=== PATIENT | female | born 1975 | race Caucasian/White ===

== ENCOUNTER → 2016-08-13 | Outpatient (CLI) | payer BC | LOC: RAD 12:33 | PROVIDERS: ATTEND Orthopaedic Surgery | DX: M54.12 Radiculopathy, cervical region (principal) | CPT/HCPCS: 72141 ==

== ENCOUNTER 2017-01-13 13:26 | Emergency (ER) | payer BC ==
--- NOTE | 2017-01-13 14:08 | ER Document Report ---
ED Cardiac - General Chief Complaint: Palpitations Stated Complaint: POSSIBLE SYNCOPE Time Seen by Provider: 01/13/17 14:03 Mode of Arrival: Ambulatory Information source: Patient Notes: Patient is a 41-year-old female with a history of SVT with an ablation 5 years ago who presents to the ER today for sweating, chills, nausea, diarrhea 5 days. Patient states that today she started having palpitations. She states that she is not really eating or drinking because of the nausea but that she has not vomited. She denies any cough, dysuria, hematuria, runny nose or sinus symptoms. She has not taken her temperature. She also has PTSD, anxiety and "severe" depression, asthma. She denies any chest pain or shortness of breath, having to use her inhaler recently. TRAVEL OUTSIDE OF THE [place] IN LAST 30 DAYS: No - Related Data Allergies/Adverse Reactions: hydromorphone HCl [From Dilaudid] Allergy (Severe, Verified 10/15/15 19:57) Severe chest pain promethazine HCl [From Phenergan] Allergy (Severe, Verified 10/15/15 19:57) dystonic reaction, Body aches, Hyperactivity Sulfa (Sulfonamide Antibiotics) Allergy (Severe, Verified 10/15/15 19:57) Hives acetaminophen [From Vicodin] Allergy (Verified 10/15/15 19:57) Hives hydrocodone bitartrate [From Vicodin] Allergy (Verified 10/15/15 19:57) Hives ciprofloxacin HCl [From Cipro] Adverse Reaction (Severe, Verified 10/15/15 19:57 ) VOMITING morphine [Morphine] Adverse Reaction (Severe, Verified 10/15/15 19:57) Chest pain oxycodone HCl [From Percocet] Adverse Reaction (Severe, Verified 10/15/15 19:57) rapid HR codeine [Codeine] Adverse Reaction (Verified 10/15/15 19:57) Chest pain Past Medical History - General Information source: Patient - Social History Smoking Status: Unknown if Ever Smoked Family History: Reviewed & Not Pertinent - Past Medical History Cardiac Medical History: Denies: Hx Coronary Artery Disease, Hx Heart Attack, Hx Hypertension Pulmonary Medical History: Reports: Hx Asthma, Hx Pneumonia - Age 7 hospitalized x2 wks Denies: Hx Bronchitis, Hx COPD Neurological Medical History: Reports: Hx Migraine. Denies: Hx Cerebrovascular Accident, Hx Seizures GI Medical History: Reports: Hx Gastroesophageal Reflux Disease Musculoskeltal Medical History: Reports Hx Arthritis - Back, neck, shoulders, Reports Hx Fibromyalgia Psychiatric Medical History: Reports: Hx Anxiety, Hx Attention Deficit Hyperactivity Disorder, Hx Depression, Hx Post Traumatic Stress Disorder Past Surgical History: Reports: Hx Cardiac Surgery - ablation for SVT, Hx Cholecystectomy, Hx Orthopedic Surgery - right shoulder, Hx Tubal Ligation - Immunizations Hx Diphtheria, Pertussis, Tetanus Vaccination: Yes Hx Pneumococcal Vaccination: 06/12/14 Review of Systems - Review of Systems Constitutional: See HPI EENT: No symptoms reported Cardiovascular: See HPI Respiratory: See HPI Gastrointestinal: See HPI Genitourinary: No symptoms reported Female Genitourinary: No symptoms reported Musculoskeletal: No symptoms reported Skin: No symptoms reported Hematologic/Lymphatic: No symptoms reported Neurological/Psychological: No symptoms reported Physical Exam - Vital signs Vitals: Temp 98.4 F 01/13/17 13:30 - Notes Notes: PHYSICAL EXAMINATION: GENERAL: Anxious, in no acute distress. HEAD: Atraumatic, normocephalic. EYES: Pupils equal round and reactive to light, extraocular movements intact, sclera anicteric, conjunctiva are normal. ENT: ear canals without erythema or foreign body, TMs pearly arora with good bony landmarks, nares patent, oropharynx clear without exudates. Moist mucous membranes. NECK: Normal range of motion, supple without lymphadenopathy LUNGS: CTAB and equal. No wheezes rales or rhonchi. HEART: Regular rate and rhythm without murmurs ABDOMEN: Soft, no tenderness. No guarding, no rebound BACK: no vertebral tenderness, normal ROM GI/: no CVA tenderness EXTREMITIES: Normal range of motion, no pitting edema. No cyanosis. NEUROLOGICAL: Cranial nerves grossly intact. Normal sensory/motor exams. PSYCH: Anxious SKIN: Warm, Dry, normal turgor, no rashes or lesions noted Course - Re-evaluation Re-evalutation: 01/13/17 17:35 Pt was very agitated in the room as soon as I walked out from evaluating her, I was called back in because she was "ripping" everything off of her including the IV, bp cuff, etc. She was not like this when I evaluated her minutes prior. I did order her normal dose of ativan orally which calmed her down and her palpitations disappeared, 2 liters of IV fluids brought her bp up to normal ( lowest here on one cycle was 94/57) and it remained normal, pt was initially tachycardic up to 128 when she had her panic attack here, but now has remained between 82-94bpm in sinus rhythm. EKG revealed normal sinus rhythm with a rate of 82bpm. - Vital Signs Vital signs: Temp Pulse Resp BP Pulse Ox 98.4 F 01/13/17 13:30 - Laboratory Result Diagrams: 01/13/17 15:10 01/13/17 15:10 Laboratory results interpreted by me: 01/13/17 01/13/17 01/13/17 15:10 15:10 15:30 WBC 11.6 H BUN 5 L Glucose 70 L Urine Ketones TRACE H Discharge - Discharge Clinical Impression: Anxiety, Palpitations, Viral syndrome Diarrhea Qualifiers: Diarrhea type: presumed infectious Qualified Code(s): A09 - Infectious gastroenteritis and colitis, unspecified Condition: Stable Disposition: HOME, SELF-CARE Instructions: Viral Syndrome ([facility]), Palpitations (Irregular or Rapid Heartrate ) ([facility]) Additional Instructions: Return immediately for any new or worsening symptoms. Follow up with primary care provider/intake specialist, call tomorrow to make followup appointment. Prescriptions: Loperamide HCl [Imodium 2 mg Capsule] 2 mg PO Q4HP PRN #21 cap PRN Reason: Forms: Return to Work
[2017-01-13] MEDS ORDERED: NORMAL SALINE 1000 ML 1,000 ML IV ONE ×2 (14:20→16:24)
[2017-01-13] MEDS ORDERED: LORAZEPAM 1 MG TABLET PO ONE (14:27)
--- NOTE | 2017-01-13 15:09 | RADIOLOGY REPORT (SQ) ---
EXAM DESCRIPTION: CHEST SINGLE VIEW COMPLETED DATE/TIME: 01/13/2017 3:00 pm REASON FOR STUDY: cp, nausea, diaphoretic COMPARISON: 08/11/2014 EXAM PARAMETERS: NUMBER OF VIEWS: One view. TECHNIQUE: Single frontal radiographic view of the chest acquired. RADIATION DOSE: NA LIMITATIONS: None. FINDINGS: LUNGS AND PLEURA: No opacities, masses or pneumothorax. No pleural effusion. MEDIASTINUM AND HILAR STRUCTURES: No masses. Contour normal. HEART AND VASCULAR STRUCTURES: Heart normal in size. Normal vasculature. BONES: No acute findings. HARDWARE: None in the chest. OTHER: No other significant finding. IMPRESSION: NO ACUTE RADIOGRAPHIC FINDING IN THE CHEST. TECHNICAL DOCUMENTATION: JOB ID: [id number]
[2017-01-13 15:20] LABS: ABSOLUTE BASOPHILS # (AUTO) 0.1 10^3/uL (0.0-0.2); ABSOLUTE EOSINOPHILS # (AUTO) 0.2 10^3/uL (0.0-0.6); ABSOLUTE LYMPHOCYTES (AUTO) 2.8 10^3/uL (0.5-4.7); ABSOLUTE MONOCYTES (AUTO) 0.8 10^3/uL (0.1-1.4); ABSOLUTE NEUT (AUTO) 7.8 10^3/uL (1.7-8.2); BASOPHILS % (AUTO) 0.6 % (0-2); EOSINOPHILS % (AUTO) 1.6 % (0-6); HEMATOCRIT 39.1 % (36.0-47.0); HEMOGLOBIN 13.1 g/dL (12.0-15.5); HGB HCT DIFFERENCE 0.2; LYMPHOCYTES % (AUTO) 23.8 % (13-45); MEAN CORPUSCULAR HEMOGLOBIN 30.1 pg (27.0-33.4); MEAN CORPUSCULAR HGB CONC 33.5 g/dL (32.0-36.0); MEAN CORPUSCULAR VOLUME 90 fl (80-97); MONOCYTES % (AUTO) 6.6 % (3-13); RED BLOOD COUNT 4.35 10^6/uL (3.72-5.28); RED CELL DISTRIBUTION WIDTH 13.3 % (11.5-14.0); SEGMENTED NEUTROPHILS % (AUTO) 67.4 % (42-78); WHITE BLOOD COUNT 11.6 10^3/uL (4.0-10.5)
[2017-01-13 15:34] LABS: ALANINE AMINOTRANSFERASE 22 U/L (9-52); ALKALINE PHOSPHATASE 92 U/L (38-126); ANION GAP 13 (5-19); ASPARTATE AMINO TRANSFERASE 14 U/L (14-36); BILIRUBIN,DIRECT 0.3 mg/dL (0.0-0.4); BILIRUBIN,TOTAL 0.5 mg/dL (0.2-1.3); BLOOD UREA NITROGEN 5 mg/dL (7-20); CALCIUM 9.3 mg/dL (8.4-10.2); CARBON DIOXIDE 25 mmol/L (22-30); CHLORIDE 106 mmol/L (98-107); CREATINE KINASE 56 U/L (30-135); CREATININE RESULT 0.68 mg/dL (0.52-1.25); GLUCOSE 70 mg/dL (75-110); LIPASE 79.5 U/L (23-300); POTASSIUM 3.7 mmol/L (3.6-5.0); SODIUM 143.5 mmol/L (137-145); TOTAL PROTEIN 7.1 g/dL (6.3-8.2)
[2017-01-13 15:46] LABS: CREATINE KINASE MB 0.25 ng/mL (<4.55)
[2017-01-13 15:47] LABS: TROPONIN I < 0.012 ng/mL
[2017-01-13 15:53] LABS: APPEARANCE,URINE CLEAR; BILIRUBIN,URINE NEGATIVE (NEGATIVE); GLUCOSE, URINE NEGATIVE (NEGATIVE); KETONES,URINE TRACE mg/dL (NEGATIVE); LEUKOCYTE ESTERASE,URINE NEGATIVE (NEGATIVE); NITRITE,URINE NEGATIVE (NEGATIVE); PROTEIN,URINE NEGATIVE (NEGATIVE); URINE SPECIFIC GRAVITY 1.005; UROBILINOGEN,URINE NEGATIVE mg/dL (<2.0)
[2017-01-13 16:07] LABS: URINE BARBITURATES SCREEN NEGATIVE; URINE METHADONE SCREEN NEGATIVE; URINE OPIATES LOW NEGATIVE; URINE PHENCYCLIDINE SCREEN NEGATIVE
[2017-01-13] MEDS ORDERED: LOPERAMIDE HCL 2 MG CAPSULE PO ONE (17:44)
[2017-01-13 17:50] VITALS: BP 101/67
--- NOTE | 2017-01-15 03:55 | EKG REPORT ---
SEVERITY:- ABNORMAL ECG - SINUS RHYTHM FIRST DEGREE AV BLOCK : Confirmed by: Shameka Moses MD 15-Jan-2017 03:55:08
== END 2017-01-13 18:01 | disposition home or self-care (01) ==
LOC: ER 13:26
DX: F41.9 Anxiety disorder, unspecified (principal); R00.2 Palpitations; B34.9 Viral infection, unspecified; A09 Infectious gastroenteritis and colitis, unspecified; R55 Syncope and collapse; Z88.6 Allergy status to analgesic agent; Z88.2 Allergy status to sulfonamides; Z88.3 Allergy status to other anti-infective agents; Z90.49 Acquired absence of other specified parts of digestive tract; Z98.51 Tubal ligation status
CPT/HCPCS: 93005; 99285; 96361; 96374; 36415; 87045; 87205; 82553; 82550; 83690; 85025; 80053; 81001; 84484; 80307; 87493 ×2; 71010; 93010; J7030

== ENCOUNTER 2017-03-02 19:33 | Emergency (ER) | payer BC ==
[2017-03-02] MEDS ORDERED: NORMAL SALINE 1000 ML 1,000 ML IV PRN (20:56)
[2017-03-02] MEDS ORDERED: MORPHINE SULFATE 10 MG/ML INJ IV ONE (20:57)
[2017-03-02] MEDS ORDERED: ONDANSETRON HCL INJ/PF 4 MG/2 ML SDV IV ONE (20:57)
--- NOTE | 2017-03-02 21:00 | ER Document Report ---
ED Medical Screen (RME) - General Chief Complaint: Abdominal Pain Stated Complaint: ABDOMINAL PAIN Time Seen by Provider: 03/02/17 20:56 Notes: Patient reports several days of diffuse abdominal pain with vomiting. No change in stools. She states she has had a previous cholecystectomy and a tubal ligation as well as a bladder sling. No problems with urination no vaginal symptoms. TRAVEL OUTSIDE OF THE [place] IN LAST 30 DAYS: No - Related Data Allergies/Adverse Reactions: hydromorphone HCl [From Dilaudid] Allergy (Severe, Verified 10/15/15 19:57) Severe chest pain promethazine HCl [From Phenergan] Allergy (Severe, Verified 10/15/15 19:57) dystonic reaction, Body aches, Hyperactivity Sulfa (Sulfonamide Antibiotics) Allergy (Severe, Verified 10/15/15 19:57) Hives acetaminophen [From Vicodin] Allergy (Verified 10/15/15 19:57) Hives hydrocodone bitartrate [From Vicodin] Allergy (Verified 10/15/15 19:57) Hives ciprofloxacin HCl [From Cipro] Adverse Reaction (Severe, Verified 10/15/15 19:57 ) VOMITING morphine [Morphine] Adverse Reaction (Severe, Verified 10/15/15 19:57) Chest pain oxycodone HCl [From Percocet] Adverse Reaction (Severe, Verified 10/15/15 19:57) rapid HR codeine [Codeine] Adverse Reaction (Verified 10/15/15 19:57) Chest pain Past Medical History - Social History Chew tobacco use (# tins/day): No Frequency of alcohol use: None Drug Abuse: None - Past Medical History Cardiac Medical History: Denies: Hx Coronary Artery Disease, Hx Heart Attack, Hx Hypertension Pulmonary Medical History: Reports: Hx Asthma, Hx Pneumonia - Age 7 hospitalized x2 wks Denies: Hx Bronchitis, Hx COPD Neurological Medical History: Reports: Hx Migraine. Denies: Hx Cerebrovascular Accident, Hx Seizures Renal/ Medical History: Denies: Hx Peritoneal Dialysis GI Medical History: Reports: Hx Gastroesophageal Reflux Disease Musculoskeltal Medical History: Reports Hx Arthritis - Back, neck, shoulders, Reports Hx Fibromyalgia Psychiatric Medical History: Reports: Hx Anxiety, Hx Attention Deficit Hyperactivity Disorder, Hx Depression, Hx Post Traumatic Stress Disorder Past Surgical History: Reports: Hx Cardiac Surgery - ablation for SVT, Hx Cholecystectomy, Hx Genitourinary Surgery - monarch bladder sling, Hx Orthopedic Surgery - right shoulder, Hx Tubal Ligation - Immunizations Hx Diphtheria, Pertussis, Tetanus Vaccination: Yes Physical Exam - Vital signs Vitals: Temp Pulse Resp BP Pulse Ox 98.5 F 103 H 16 117/76 98 03/02/17 20:00 03/02/17 20:00 03/02/17 20:00 03/02/17 20:00 03/02/17 20:00 Course - Vital Signs Vital signs: Temp Pulse Resp BP Pulse Ox 98.5 F 103 H 16 117/76 98 03/02/17 20:00 03/02/17 20:00 03/02/17 20:00 03/02/17 20:00 03/02/17 20:00
[2017-03-02 22:19] LABS: ABSOLUTE BASOPHILS # (AUTO) 0.1 10^3/uL (0.0-0.2); ABSOLUTE EOSINOPHILS # (AUTO) 0.4 10^3/uL (0.0-0.6); ABSOLUTE LYMPHOCYTES (AUTO) 3.4 10^3/uL (0.5-4.7); ABSOLUTE MONOCYTES (AUTO) 0.9 10^3/uL (0.1-1.4); ABSOLUTE NEUT (AUTO) 8.1 10^3/uL (1.7-8.2); BASOPHILS % (AUTO) 0.6 % (0-2); EOSINOPHILS % (AUTO) 3.2 % (0-6); HEMOGLOBIN 13.9 g/dL (12.0-15.5); HGB HCT DIFFERENCE -0.3; LYMPHOCYTES % (AUTO) 26.3 % (13-45); MEAN CORPUSCULAR HEMOGLOBIN 30.7 pg (27.0-33.4); MEAN CORPUSCULAR VOLUME 93 fl (80-97); MONOCYTES % (AUTO) 6.9 % (3-13); RED BLOOD COUNT 4.53 10^6/uL (3.72-5.28); RED CELL DISTRIBUTION WIDTH 14.2 % (11.5-14.0); WHITE BLOOD COUNT 12.8 10^3/uL (4.0-10.5)
[2017-03-02 22:28] LABS: ALANINE AMINOTRANSFERASE 29 U/L (9-52); ALBUMIN 4.8 g/dL (3.5-5.0); ALKALINE PHOSPHATASE 100 U/L (38-126); ANION GAP 14 (5-19); ASPARTATE AMINO TRANSFERASE 19 U/L (14-36); BILIRUBIN,DIRECT 0.4 mg/dL (0.0-0.4); BILIRUBIN,TOTAL 0.8 mg/dL (0.2-1.3); BLOOD UREA NITROGEN 9 mg/dL (7-20); CALCIUM 9.9 mg/dL (8.4-10.2); CARBON DIOXIDE 23 mmol/L (22-30); CHLORIDE 105 mmol/L (98-107); CREATININE RESULT 0.74 mg/dL (0.52-1.25); GLUCOSE 95 mg/dL (75-110); LIPASE 66.8 U/L (23-300); POTASSIUM 4.4 mmol/L (3.6-5.0); SODIUM 141.9 mmol/L (137-145); TOTAL PROTEIN 8.2 g/dL (6.3-8.2)
[2017-03-02] MEDS ORDERED: DICYCLOMINE HCL INJ 20 MG/2 ML AMPULE IM ONE (23:15)
--- NOTE | 2017-03-02 23:17 | ER Document Report ---
ED General - General Chief Complaint: Abdominal Pain Stated Complaint: ABDOMINAL PAIN Time Seen by Provider: 03/02/17 20:56 Notes: Patient is a 41-year-old female presents with complaint of abdominal pain. She says is ongoing for several days. She says is generalized across the abdomen. No vomiting. No diarrhea. Last bowel movement was this morning. She says was normal. She says only thing atypical about a bowel movement that she typically has multiple bowel movements in the morning and she only had one. No blood in her stool. No fevers. She has a history of cholecystectomy, tubal ligation, and bladder sling surgery. No dysuria. No abnormal vaginal bleeding or discharge. No other complaints at this time. Patient's chief complaint on her chart is redness abdominal pain or shortness of breath. Patient says that she is actually short of breath but she feels like her breath is harder to get in especially when she is having pain. No history of DVT or PE. No extremity swelling. TRAVEL OUTSIDE OF THE [place] IN LAST 30 DAYS: No - Related Data Allergies/Adverse Reactions: hydromorphone HCl [From Dilaudid] Allergy (Severe, Verified 10/15/15 19:57) Severe chest pain promethazine HCl [From Phenergan] Allergy (Severe, Verified 10/15/15 19:57) dystonic reaction, Body aches, Hyperactivity Sulfa (Sulfonamide Antibiotics) Allergy (Severe, Verified 10/15/15 19:57) Hives acetaminophen [From Vicodin] Allergy (Verified 10/15/15 19:57) Hives hydrocodone bitartrate [From Vicodin] Allergy (Verified 10/15/15 19:57) Hives ciprofloxacin HCl [From Cipro] Adverse Reaction (Severe, Verified 10/15/15 19:57 ) VOMITING morphine [Morphine] Adverse Reaction (Severe, Verified 10/15/15 19:57) Chest pain oxycodone HCl [From Percocet] Adverse Reaction (Severe, Verified 10/15/15 19:57) rapid HR codeine [Codeine] Adverse Reaction (Verified 10/15/15 19:57) Chest pain Past Medical History - Social History Smoking Status: Former Smoker Chew tobacco use (# tins/day): No Frequency of alcohol use: None Drug Abuse: None Family History: Reviewed & Not Pertinent Patient has suicidal ideation: No Patient has homicidal ideation: No - Past Medical History Cardiac Medical History: Denies: Hx Coronary Artery Disease, Hx Heart Attack, Hx Hypertension Pulmonary Medical History: Reports: Hx Asthma, Hx Pneumonia - Age 7 hospitalized x2 wks Denies: Hx Bronchitis, Hx COPD Neurological Medical History: Reports: Hx Migraine. Denies: Hx Cerebrovascular Accident, Hx Seizures Renal/ Medical History: Denies: Hx Peritoneal Dialysis GI Medical History: Reports: Hx Gastroesophageal Reflux Disease Musculoskeltal Medical History: Reports Hx Arthritis - Back, neck, shoulders, Reports Hx Fibromyalgia Psychiatric Medical History: Reports: Hx Anxiety, Hx Attention Deficit Hyperactivity Disorder, Hx Depression, Hx Post Traumatic Stress Disorder Past Surgical History: Reports: Hx Cardiac Surgery - ablation for SVT, Hx Cholecystectomy, Hx Genitourinary Surgery - monarch bladder sling, Hx Orthopedic Surgery - right shoulder, Hx Tubal Ligation - Immunizations Hx Diphtheria, Pertussis, Tetanus Vaccination: Yes Hx Pneumococcal Vaccination: 06/12/14 Physical Exam - Vital signs Vitals: Temp Pulse Resp BP Pulse Ox 98.5 F 103 H 16 117/76 98 03/02/17 20:00 03/02/17 20:00 03/02/17 20:00 03/02/17 20:00 03/02/17 20:00 Course - Re-evaluation Re-evalutation: 03/03/17 01:50 Patient did mention to me that for the difficulty breathing had started and she was having some pain into her right thigh. The pain in right thigh is now gone but she has since developed some difficulty breathing. I therefore did obtain a d-dimer. D-dimer is positive. We will perform a CT Angio of the chest. 03/03/17 05:18 CTA of the chest is negative. Patient's pain on repeat evaluations is mostly epigastric. She has no right lower quadrant abdominal tenderness. I do not have concern for appendicitis being that she has no right lower quadrant abdominal tenderness. She looks well. She is on Mobic. This could be leading to some gastric irritation. She is already on Protonix. She says usually takes the Mobic on an empty stomach. I encouraged her to take the Mobic with food. I will place her on Carafate as well. Encouraged her follow-up closely with her primary care doctor. I encouraged her return to the ER if she has worsening pain, fevers, vomiting, or feels unwell. Patient agrees with plan and will be discharged home. Dictation of this chart was performed using voice recognition software; therefore, there may be some unintended grammatical errors. - Vital Signs Vital signs: Temp Pulse Resp BP Pulse Ox 98.5 F 103 H 16 117/76 98 03/02/17 20:00 03/02/17 20:00 03/02/17 20:00 03/02/17 20:00 03/02/17 20:00 - Laboratory Result Diagrams: 03/02/17 21:50 03/02/17 21:50 Laboratory results interpreted by me: 03/02/17 03/02/17 03/03/17 21:50 21:50 00:50 WBC 12.8 H RDW 14.2 H D-Dimer 1.68 H Urine Ketones TRACE H Discharge - Discharge Clinical Impression: Abdominal pain Qualifiers: Abdominal location: epigastric Qualified Code(s): R10.13 - Epigastric pain Condition: Good Disposition: HOME, SELF-CARE Additional Instructions: ABDOMINAL PAIN: There are many causes of abdominal pain. Pain can mean a serious problem requiring surgery (such as appendicitis). It can also be an innocent problem that goes away on its own (such as a viral infection). Often, time must pass to determine the cause of pain. The physician does not feel that hospitalization is necessary, at present. Things may change within the next 24 hours. Call the doctor or come back for re- examination if any problems occur, such as: (1) Pain that becomes more severe, steady, or becomes concentrated in one specific area. Also, pain that is more severe with movement or coughing. (2) Vomiting that persists or becomes more frequent. (3) Blood in the vomitus, urine, or bowel movements. Blood in the stool may have a tarry or black appearance. (4) Shaking chills or fever greater than 100 degrees F. (5) The abdomen becomes more distended or swollen. (6) Bowel movements cease. (7) Failure to improve as expected. ANTINAUSEA MEDICATION: You have been given a medication to suppress nausea and vomiting. This type of medication can be given as a shot, pill, or suppository. It will usually last for many hours. Pills and shots usually last six to eight hours, suppositories last about 12 hours. For the typical illness, only one or two doses of the medication may be necessary. Mild lightheadedness may occur. This type of medicine can cause drowsiness. Do not drive or operate dangerous machinery while under its influence. Do not mix with alcohol. See your doctor at once if you have muscle spasms or tightness, or uncontrollable motions (particularly of the neck, mouth, or jaw). Persistent vomiting or severe lightheadedness should also be evaluated by the physician. FOLLOW-UP CARE: If you have been referred to a physician for follow-up care, call the physician s office for an appointment as you were instructed or within the next two days. If you experience worsening or a significant change in your symptoms, notify the physician immediately or return to the Emergency Department at any time for re-evaluation. FOLLOW-UP CARE: Please return to the ER immediately if you are having worsening pain, fevers, vomiting, blood in your stool, black stools, or pain over the right lower portion of your abdomen. Please follow up with your doctor or the ER in 2 days for reevaluation. Please do not take your Meloxicam on an empty stomach. Prescriptions: Ondansetron [Zofran Odt 4 mg Tablet] 1 tab PO Q4H PRN #15 tab.rapdis PRN Reason: For Nausea/Vomiting Sucralfate [Carafate 1 gm Tablet] 1 gm PO ACHS #120 tablet Forms: Special Work Note Referrals: MEREDITH CARRIZALES MD [Primary Care Provider] - Follow up as needed
[2017-03-02 23:37] LABS: AMORPHOUS SEDIMENT,URINE 3+ /HPF; APPEARANCE,URINE TURBID; BILIRUBIN,URINE NEGATIVE (NEGATIVE); GLUCOSE, URINE NEGATIVE (NEGATIVE); KETONES,URINE TRACE mg/dL (NEGATIVE); LEUKOCYTE ESTERASE,URINE NEGATIVE (NEGATIVE); NITRITE,URINE NEGATIVE (NEGATIVE); PROTEIN,URINE NEGATIVE (NEGATIVE); URINE SPECIFIC GRAVITY 1.028; UROBILINOGEN,URINE NEGATIVE mg/dL (<2.0)
--- NOTE | 2017-03-02 23:50 | RADIOLOGY REPORT (SQ) ---
EXAM DESCRIPTION: ACUTE ABDOMEN SERIES COMPLETED DATE/TIME: 03/02/2017 11:40 pm REASON FOR STUDY: abdominal pain COMPARISON: 01/13/2017 NUMBER OF VIEWS: Three views. TECHNIQUE: Frontal chest, supine abdomen and upright/decubitus abdomen radiographic images acquired. LIMITATIONS: None. FINDINGS: CHEST: Lungs clear of infiltrates. FREE AIR: None. No abnormal gas collections. BOWEL GAS PATTERN: Nonobstructive pattern. No dilated loops or air fluid levels. CALCIFICATIONS: No suspicious calcifications. HARDWARE: There are surgical clips in the right upper quadrant. SOFT TISSUES: No gross mass or suggestion of organomegaly. BONES: No acute fracture. No worrisome bone lesions. OTHER: No other significant finding. IMPRESSION: NO RADIOGRAPHIC EVIDENCE FOR ACUTE ABDOMINAL DISEASE. TECHNICAL DOCUMENTATION: JOB ID: [id number] [email or web address]- All Rights Reserved
[2017-03-03] MEDS ORDERED: METOCLOPRAMIDE HCL ORAL SOLN 10 MG/10 ML UDCUP PO ONE (01:03)
[2017-03-03] MEDS ORDERED: LIDOCAINE 2% VISCOUS SOLN 20 ML UDCUP PO ONE (01:03)
[2017-03-03] MEDS ORDERED: MAG HYDROX/AL HYDROX/SIMETH SUSP 30 ML UDCUP PO ONE (01:03)
[2017-03-03] MEDS ORDERED: NORMAL SALINE 1000 ML 1,000 ML IV ONE (01:50)
--- NOTE | 2017-03-03 04:18 | RADIOLOGY REPORT (SQ) ---
EXAM DESCRIPTION: CTA CHEST COMPLETED DATE/TIME: 03/03/2017 3:51 am REASON FOR STUDY: dyspnea, elevated d dimer(1.68) COMPARISON: None. TECHNIQUE: CT scan of the chest performed using helical scanning technique with dynamic intravenous contrast injection. Images reviewed with lung, soft tissue and bone windows. Reconstructed coronal and sagittal MPR images reviewed. Additional 3 dimensional post-processing performed to develop Maximal Intensity Projection images (GA P). All images stored on PACS. All CT scanners at this facility use dose modulation, iterative reconstruction, and/or weight based d osing when appropriate to reduce radiation dose to as low as reasonably achievable (ALARA). [facility]: Dose Right [facility]: CareDose [facility]: Dose Right [facility]: Teradose 4D [facility]: [employer] Silicon CONTRAST TYPE AND DOSE: contrast/concentration: Isovue 370.00 mg/ml; Total Contrast Delivered: 100.0 ml; Total Saline Delivered: 65.0 ml RENAL FUNCTION: Creatinine 0.7 RADIATION DOSE: Up-to-date CT equipment and radiation dose reduction techniques were employed. CTDIv ol: 16.0 mGy. DLP: 564 mGy-cm. . LIMITATIONS: None. FINDINGS: LUNGS AND PLEURA: No masses, infiltrates, pneumothorax. No pleural effusions, calcificati ons. AORTA AND GREAT VESSELS: No aneurysm or dissection. HEART: No pericardial effusion. PULMONARY ARTERIES: No emboli visualized in the main pulmonary arteries or the segmental branches. HILAR AND MEDIASTINAL STRUCTURES: No identified masses or abnormal nodes. HARDWARE: None in the chest. UPPER ABDOMEN: Hepatic steatosis. Limited exam. THYROID AND OTHER SOFT TISSUES: No masses. No adenopathy. BONES: No acute or significant finding. 3D MIPS: Confirm above findings. OTHER: No other significant finding. IMPRESSION: NORMAL CTA OF THE CHEST. NO PULMONARY EMBOLI. TECHNICAL DOCUMENTATION: JOB ID: [id number] Quality ID # [id number]: Final reports with documentation of one or more dose reduction techniques (e.g., Au tomated exposure control, adjustment of the mA and/or kV according to patient size, use of iterative reconstruction technique) 2010 [employer] [facility]- All Rights Reserved
[2017-03-03 05:20] VITALS: BP 100/62
== END 2017-03-03 05:15 | disposition home or self-care (01) ==
LOC: ER 19:33
DX: R10.13 Epigastric pain (principal); R10.84 Generalized abdominal pain; Z88.6 Allergy status to analgesic agent; Z88.2 Allergy status to sulfonamides; Z90.49 Acquired absence of other specified parts of digestive tract; Z98.51 Tubal ligation status
CPT/HCPCS: 99284; 36415; 83690; 85025; 81025; 80053; 81001; 85379; 74022; 71275; J0500; J3490; J2405; J7030 ×2

== ENCOUNTER 2017-04-25 19:52 | Emergency (ER) | payer BC ==
[2017-04-25] MEDS ORDERED: ASPIRIN 81 MG TABLET, CHEWABLE PO ONE (20:35)
[2017-04-25] MEDS ORDERED: NORMAL SALINE 1000 ML 1,000 ML IV ONE (20:46)
--- NOTE | 2017-04-25 20:48 | ER Document Report ---
ED Medical Screen (RME) - General Chief Complaint: Chest Pain > 30 Stated Complaint: COUGHING UP BLOOD WITH CHEST PAIN Time Seen by Provider: 04/25/17 20:46 Mode of Arrival: Ambulatory Information source: Patient Notes: Pt presents complaining of cough, chest pain and hemoptysis that started yesterday. Patient reports fever today of 101.6. Patient is concerned about pneumonia. hx: Asthma, SVT with cardiac ablation TRAVEL OUTSIDE OF THE [place] IN LAST 30 DAYS: No - Related Data Allergies/Adverse Reactions: hydromorphone HCl [From Dilaudid] Allergy (Severe, Verified 04/25/17 20:21) Severe chest pain promethazine HCl [From Phenergan] Allergy (Severe, Verified 04/25/17 20:21) dystonic reaction, Body aches, Hyperactivity Sulfa (Sulfonamide Antibiotics) Allergy (Severe, Verified 04/25/17 20:21) Hives acetaminophen [From Vicodin] Allergy (Verified 04/25/17 20:21) Hives hydrocodone bitartrate [From Vicodin] Allergy (Verified 04/25/17 20:21) Hives ciprofloxacin HCl [From Cipro] Adverse Reaction (Severe, Verified 04/25/17 20:21 ) VOMITING morphine [Morphine] Adverse Reaction (Severe, Verified 04/25/17 20:21) Chest pain oxycodone HCl [From Percocet] Adverse Reaction (Severe, Verified 04/25/17 20:21) rapid HR codeine [Codeine] Adverse Reaction (Verified 04/25/17 20:21) Chest pain Past Medical History - Social History Chew tobacco use (# tins/day): No Frequency of alcohol use: Occasional Drug Abuse: Marijuana - Past Medical History Cardiac Medical History: Denies: Hx Coronary Artery Disease, Hx Heart Attack, Hx Hypertension Pulmonary Medical History: Reports: Hx Asthma, Hx Pneumonia - Age 7 hospitalized x2 wks Denies: Hx Bronchitis, Hx COPD Neurological Medical History: Reports: Hx Migraine. Denies: Hx Cerebrovascular Accident, Hx Seizures Renal/ Medical History: Denies: Hx Peritoneal Dialysis GI Medical History: Reports: Hx Gastroesophageal Reflux Disease Musculoskeltal Medical History: Reports Hx Arthritis - Back, neck, shoulders, Reports Hx Fibromyalgia Psychiatric Medical History: Reports: Hx Anxiety, Hx Attention Deficit Hyperactivity Disorder, Hx Depression, Hx Post Traumatic Stress Disorder Past Surgical History: Reports: Hx Cardiac Surgery - ablation for SVT, Hx Cholecystectomy, Hx Genitourinary Surgery - monarch bladder sling, Hx Orthopedic Surgery - right shoulder, Hx Tubal Ligation - Immunizations Hx Diphtheria, Pertussis, Tetanus Vaccination: Yes Physical Exam - Cardiovascular Rhythm: Tachycardia Heart sounds: S1 appreciated, S2 appreciated Murmur: No
--- NOTE | 2017-04-25 21:13 | EKG REPORT ---
SEVERITY:- ABNORMAL ECG - SINUS TACHYCARDIA FIRST DEGREE AV BLOCK PROBABLE LEFT ATRIAL ABNORMALITY : Confirmed by: Kelsey Solano 25-Apr-2017 21:12:38
[2017-04-25 21:18] LABS: ABSOLUTE BASOPHILS # (AUTO) 0.1 10^3/uL (0.0-0.2); ABSOLUTE EOSINOPHILS # (AUTO) 0.6 10^3/uL (0.0-0.6); ABSOLUTE LYMPHOCYTES (AUTO) 2.2 10^3/uL (0.5-4.7); ABSOLUTE MONOCYTES (AUTO) 1.4 10^3/uL (0.1-1.4); ABSOLUTE NEUT (AUTO) 11.4 10^3/uL (1.7-8.2); BASOPHILS % (AUTO) 0.5 % (0-2); HEMATOCRIT 40.1 % (36.0-47.0); HEMOGLOBIN 13.8 g/dL (12.0-15.5); HGB HCT DIFFERENCE 1.3; LYMPHOCYTES % (AUTO) 14.2 % (13-45); MEAN CORPUSCULAR HEMOGLOBIN 30.8 pg (27.0-33.4); MEAN CORPUSCULAR HGB CONC 34.4 g/dL (32.0-36.0); MEAN CORPUSCULAR VOLUME 90 fl (80-97); MONOCYTES % (AUTO) 8.7 % (3-13); RED BLOOD COUNT 4.48 10^6/uL (3.72-5.28); RED CELL DISTRIBUTION WIDTH 14.3 % (11.5-14.0); SEGMENTED NEUTROPHILS % (AUTO) 72.6 % (42-78); WHITE BLOOD COUNT 15.7 10^3/uL (4.0-10.5)
[2017-04-25 21:38] LABS: ALANINE AMINOTRANSFERASE 36 U/L (9-52); ALBUMIN 4.7 g/dL (3.5-5.0); ALKALINE PHOSPHATASE 106 U/L (38-126); ANION GAP 15 (5-19); ASPARTATE AMINO TRANSFERASE 20 U/L (14-36); BILIRUBIN,DIRECT 0.4 mg/dL (0.0-0.4); BILIRUBIN,TOTAL 0.7 mg/dL (0.2-1.3); BLOOD UREA NITROGEN 5 mg/dL (7-20); CALCIUM 10.1 mg/dL (8.4-10.2); CARBON DIOXIDE 23 mmol/L (22-30); CHLORIDE 105 mmol/L (98-107); CREATINE KINASE 108 U/L (30-135); GLUCOSE 92 mg/dL (75-110); POTASSIUM 3.6 mmol/L (3.6-5.0); SODIUM 142.9 mmol/L (137-145); TOTAL PROTEIN 7.9 g/dL (6.3-8.2)
[2017-04-25 21:50] LABS: CREATINE KINASE MB < 0.22 ng/mL (<4.55)
[2017-04-25 21:51] LABS: TROPONIN I < 0.012 ng/mL
--- NOTE | 2017-04-25 22:04 | RADIOLOGY REPORT (SQ) ---
EXAM DESCRIPTION: CHEST PA/LAT COMPLETED DATE/TIME: 04/25/2017 9:29 pm REASON FOR STUDY: CP COMPARISON: 08/11/2014 EXAM PARAMETERS: NUMBER OF VIEWS: two views TECHNIQUE: Digital Frontal and Lateral radiographic views of the chest acquired. RADIATION DOSE: NA LIMITATIONS: none FINDINGS: LUNGS AND PLEURA: No opacities, masses or pneumothorax. No pleural effusion. MEDIASTINUM AND HILAR STRUCTURES: No masses or contour abnormalities. HEART AND VASCULAR STRUCTURES: Heart normal size. No evidence for failure. BONES: No acute findings. HARDWARE: None in the chest. OTHER: No other significant finding. IMPRESSION: NO SIGNIFICANT RADIOGRAPHIC FINDING IN THE CHEST. TECHNICAL DOCUMENTATION: JOB ID: [id number] [employer]- All Rights Reserved
--- NOTE | 2017-04-25 23:37 | RADIOLOGY REPORT (SQ) ---
EXAM DESCRIPTION: CTA CHEST COMPLETED DATE/TIME: 04/25/2017 11:17 pm REASON FOR STUDY: Cough, congestion,. Hemoptysis COMPARISON: 03/03/2017 TECHNIQUE: CT scan of the chest performed using helical scanning technique with dynamic intravenous contrast injection. Images reviewed with lung, soft tissue and bone windows. Reconstructed coronal and sagittal MPR images reviewed. Additional 3 dimensional post-processing performed to develop Maximal Intensity Projection images (LA P). All images stored on PACS. All CT scanners at this facility use dose modulation, iterative reconstruction, and/or weight based d osing when appropriate to reduce radiation dose to as low as reasonably achievable (ALARA). [facility]: Dose Right [facility]: CareDose [facility]: Dose Right [facility]: Teradose 4D [facility]: [place] CONTRAST TYPE AND DOSE: contrast/concentration: Isovue 370.00 mg/ml; Total Contrast Delivered: 71.0 ml; Total Saline Delivered: 110.0 ml Contrast bolus optimized for the pulmonary arteries. Not diagnostic for the aorta. RENAL FUNCTION: GFR > 60. RADIATION DOSE: Up-to-date CT equipment and radiation dose reduction techniques were employed. CTDIv ol: 9.9 - 15.3 mGy. DLP: 590 mGy-cm. . LIMITATIONS: None. FINDINGS: LUNGS AND PLEURA: No pneumothorax. Minimal subsegmental atelectasis in the lingula. No co nsolidation or pleural effusions. AORTA AND GREAT VESSELS: No aneurysm. Contrast bolus not optimized for the aorta. HEART: No pericardial effusion. No significant coronary artery calcifications. PULMONARY ARTERIES: No emboli visualized in the main pulmonary arteries or the segmental branches. HILAR AND MEDIASTINAL STRUCTURES: No identified masses or abnormal nodes. HARDWARE: None in the chest. UPPER ABDOMEN: No significant findings. Limited exam. THYROID AND OTHER SOFT TISSUES: No masses. No adenopathy. BONES: No acute or significant finding. 3D MIPS: Confirm above findings. OTHER: No other significant finding. IMPRESSION: No emboli visualized in the main pulmonary arteries or the segmental branches. Minimal subsegmental atelectasis in the lingula. COMMENT: Quality ID # [id number]: Final reports with documentation of one or more dose reduction techniques (e.g., Automated exposure control, adjustment of the mA and/or kV according to patient size, use of iterative reconstruction technique) TECHNICAL DOCUMENTATION: JOB ID: [id number] 0671[employer]- All Rights Reserved
[2017-04-26] MEDS ORDERED: AZITHROMYCIN 250 MG TABLET PO ONE (00:11)
--- NOTE | 2017-04-26 00:11 | ER Document Report ---
ED Respiratory Problem - General Chief Complaint: Chest Pain > 30 Stated Complaint: COUGHING UP BLOOD WITH CHEST PAIN Time Seen by Provider: 04/25/17 20:46 Mode of Arrival: Ambulatory Notes: Patient says that she woke up Wednesday morning and felt as if she had razor blades in the front of her neck and throat. She was coughing on Wednesday quite vigorously and developed some hemoptysis that lasted for 20 minutes or more. This evening, patient developed some pains in the center of her chest. She has been nauseated and vomited yesterday. She has had a couple of episodes of diarrhea. Somewhat short of breath. Does have a history of asthma and has home nebulizers and inhalers. Has felt as if she has had a fever. Her had similar respiratory symptoms last week and he is almost over it now. Patient had similar symptoms and was here in this ED a month ago and had a positive d-dimer and underwent a CTA of her chest, but it was normal. TRAVEL OUTSIDE OF THE [place] IN LAST 30 DAYS: No - Related Data Allergies/Adverse Reactions: hydromorphone HCl [From Dilaudid] Allergy (Severe, Verified 04/25/17 20:21) Severe chest pain promethazine HCl [From Phenergan] Allergy (Severe, Verified 04/25/17 20:21) dystonic reaction, Body aches, Hyperactivity Sulfa (Sulfonamide Antibiotics) Allergy (Severe, Verified 04/25/17 20:21) Hives acetaminophen [From Vicodin] Allergy (Verified 04/25/17 20:21) Hives hydrocodone bitartrate [From Vicodin] Allergy (Verified 04/25/17 20:21) Hives ciprofloxacin HCl [From Cipro] Adverse Reaction (Severe, Verified 04/25/17 20:21 ) VOMITING morphine [Morphine] Adverse Reaction (Severe, Verified 04/25/17 20:21) Chest pain oxycodone HCl [From Percocet] Adverse Reaction (Severe, Verified 04/25/17 20:21) rapid HR codeine [Codeine] Adverse Reaction (Verified 04/25/17 20:21) Chest pain Past Medical History - General Information source: Patient - Social History Smoking Status: Never Smoker Chew tobacco use (# tins/day): No Frequency of alcohol use: Occasional Drug Abuse: Marijuana Family History: Reviewed & Not Pertinent Patient has suicidal ideation: No Patient has homicidal ideation: No Pulmonary Medical History: Reports: Hx Asthma, Hx Pneumonia - Age 7 hospitalized x2 wks Neurological Medical History: Reports: Hx Migraine GI Medical History: Reports: Hx Gastroesophageal Reflux Disease Musculoskeltal Medical History: Reports Hx Arthritis - Back, neck, shoulders, Reports Hx Fibromyalgia Psychiatric Medical History: Reports: Hx Anxiety, Hx Attention Deficit Hyperactivity Disorder, Hx Depression, Hx Post Traumatic Stress Disorder Past Surgical History: Reports: Hx Cardiac Surgery - ablation for SVT, Hx Cholecystectomy, Hx Genitourinary Surgery - monarch bladder sling, Hx Orthopedic Surgery - right shoulder, Hx Tubal Ligation - Immunizations Hx Diphtheria, Pertussis, Tetanus Vaccination: Yes Hx Pneumococcal Vaccination: 06/12/14 Review of Systems - Review of Systems Notes: REVIEW OF SYSTEMS: CONSTITUTIONAL : Denies fever. EENT: Denies eye, ear, nose or mouth or throat pain or other symptoms. CARDIOVASCULAR: Denies chest pain. RESPIRATORY: See HPI. GASTROINTESTINAL: Denies abdominal pain or nausea, vomiting, or diarrhea. GENITOURINARY: Denies difficulty or painful urinating, urinary frequency, blood in urine. MUSCULOSKELETAL: Denies back or neck pain. Denies joint pain or swelling. SKIN: Denies rash or skin lesions. NEUROLOGICAL: Denies LOC or altered mental status. Denies headache. Denies sensory loss or motor deficits. ALL OTHER SYSTEMS REVIEWED AND NEGATIVE. Physical Exam - Vital signs Vitals: Pulse Ox 99 04/25/17 20:35 Interpretation: Normal. No: Febrile - Notes Notes: PHYSICAL EXAMINATION: GENERAL: Well-appearing, in no acute distress. HEAD: Atraumatic, normocephalic. EYES: Pupils equal round and reactive to light, extraocular movements intact. ENT: oropharynx clear without exudates. Moist mucous membranes. NECK: Normal range of motion, supple. LUNGS: Breath sounds with few scattered wheezes bilaterally but otherwise are clear and equal bilaterally. HEART: Regular rate and rhythm without murmurs. ABDOMEN: Soft, nontender. No guarding or rebound. BACK: No tenderness throughout entire back. EXTREMITIES: Normal range of motion without pain. NEUROLOGICAL: Normal speech, normal gait. Normal sensory, motor, and reflex exams. Awake, alert, and oriented x3. Cranial nerves normal. PSYCH: Normal mood, normal affect. SKIN: Warm, dry, no rashes. Course - Vital Signs Vital signs: Temp Pulse Resp BP Pulse Ox 98.8 F 86 18 120/70 97 04/26/17 00:50 04/26/17 00:50 04/26/17 00:50 04/26/17 00:50 04/26/17 00:50 - Laboratory Result Diagrams: 04/25/17 21:06 04/25/17 21:06 Laboratory results interpreted by me: 04/25/17 04/25/17 21:06 21:06 WBC 15.7 H RDW 14.3 H Absolute Neutrophils 11.4 H BUN 5 L - Diagnostic Test Radiology reviewed: Image reviewed, Reports reviewed - CTA was negative for pulmonary emboli. Radiology results interpreted by me: 04/26/17 04:21 Was normal. Discharge - Discharge Clinical Impression: Upper respiratory infection, Bronchitis, Hemoptysis Condition: Stable Disposition: HOME, SELF-CARE Additional Instructions: BRONCHITIS WITH BRONCHOSPASM (WHEEZING): You have bronchitis with bronchospasm (wheezing). Sometimes people develop wheezing with a chest cold. This occurs either because of an underlying tendency toward asthma or because the virus itself irritates the bronchial tubes. This irritation causes cough, shortness of breath, and wheezing. Emergency treatment of bronchospasm may include adrenaline shots or bronchodilator aerosol. You may feel lightheaded and have a rapid pulse for an hour or two. Rest and get plenty of fluids. At home, we'll treat you with a bronchodilator inhaler. Corticosteroids may be required for some patients. Until you recover, avoid chemical fumes, dusts, pollens, and exercising in very cold or dry air. If you smoke, stop now! Most cases of bronchitis get better without antibiotics. We prescribe antibiotics when we believe bacteria are damaging your airways, or if there's high risk the bronchitis will worsen into pneumonia. Increase your fluid intake. A cool mist humidifier may make your lungs more comfortable. An expectorant (cough medicine that loosens phlegm) can help. Repeated episodes of bronchitis and bronchospasm may result in lung damage -- for example, chronic bronchitis, recurrent pneumonias, or emphysema. If you develop a fever, increased wheezing, chest pain, or severe shortness of breath, you should contact the doctor immediately. INHALED BRONCHODILATORS: You have received a treatment of and/or prescription for an inhaled bronchodilator -- a medication which stimulates the airways in the lung to dilate. This improves the flow of air in asthma, bronchitis, and emphysema. These medicines have some similarity to adrenaline, and can cause similar side effects: shakiness, racing heart, and a sense of nervousness. These side effects decrease with time. Contact your doctor if these side effects are severe. Do not over-use the medicine. Too-frequent use of the inhaler may make it ineffective. Call your doctor if the inhaler is not controlling your symptoms at the prescribed doses. STEROID MEDICATION: You have been given an injection of or oral medicine of the cortisone/ steroid class. This medication is used to control inflammation or allergy. Federico t is usually only given for a short period of time, until the acute process subsides. There are usually no side effects from short-term use of cortisone-like medications. Some persons feel an increased sense of well-being and are not sleepy at bedtime. Long-term use of cortisone medications is best avoided, unless required for a severe condition. If your condition does not remit, or relapses after the course of corticosteroid medication, you should consult your physician. AZITHROMYCIN: Azithromycin (Zithromax) is a broad spectrum antibiotic in the same class as erythromycin. It can treat a variety of bacterial infections, but is most frequently used for respiratory infections. Azithromycin is extremely long-lasting. It accumulates in body tissues and continues to kill bacteria for many days. In order to improve absorption, Azithromycin should be taken at least one hour before or two hours after a meal. It does not have the same strong tendency to upset the stomach as erythromycin and is usually very well tolerated. Patients who have had a rash or other true allergic reactions to erythromycin should not take this medication. Call if you develop gastrointestinal distress, severe diarrhea, rash, hives, itching, or shortness of breath. FOLLOW-UP CARE: If you have been referred to a physician for follow-up care, call the physician s office for an appointment as you were instructed or within the next two days. If you experience worsening or a significant change in your symptoms, notify the physician immediately or return to the Emergency Department at any time for re-evaluation. Prescriptions: Azithromycin [Zithromax 250 mg Tablet] 250 mg PO ASDIR PRN #6 tablet PRN Reason: Prednisone [Deltasone 10 mg Tablet] 10 mg PO ASDIR PRN #21 tablet PRN Reason: Referrals: JESUS CARRIZALES HYPERION ADMINISTRATOR [NURSE PRACTITIONER] - Follow up as needed
[2017-04-26 00:52] VITALS: BP 120/70
== END 2017-04-26 00:50 | disposition home or self-care (01) ==
LOC: ER 19:52
DX: J06.9 Acute upper respiratory infection, unspecified (principal); J40 Bronchitis, not specified as acute or chronic; R04.2 Hemoptysis; R07.9 Chest pain, unspecified; Z90.49 Acquired absence of other specified parts of digestive tract; Z98.51 Tubal ligation status; Z88.2 Allergy status to sulfonamides; Z88.6 Allergy status to analgesic agent; Z88.3 Allergy status to other anti-infective agents
CPT/HCPCS: 93005; 99285; 96360; 36415; 87040; 82553; 82550; 85025; 87077; 80053; 84484; 71020; 71275; 93010; J7030; 87186

== ENCOUNTER 2017-10-03 01:43 | Observation (INO) | payer BC ==
[2017-10-03] MEDS ORDERED: METHYLPREDNISOLONE INJ 125 MG/2 ML SDV IV ONE (03:13)
[2017-10-03] MEDS ORDERED: NORMAL SALINE 1000 ML 1,000 ML IV ONE (03:15)
--- NOTE | 2017-10-03 03:17 | ER Document Report ---
ED Respiratory Problem - General Chief Complaint: Asthma Exacerbation Stated Complaint: TROUBLE BREATHING Time Seen by Provider: 10/03/17 03:10 Notes: Patient is a 42-year-old female with a history of asthma that comes emergency department for chief complaint of shortness of breath and wheezing. She states that yesterday she developed cough, this turned into wheezing, she states that today she has been increasingly short of breath, she actually used her albuterol nebulizer back to back before coming to the emergency department. She denies fever or chills, nausea or vomiting. She smokes marijuana but not cigarettes. She has never been intubated for asthma, although she states she has had multiple admissions to the hospital in the past (not recently). TRAVEL OUTSIDE OF THE [place] IN LAST 30 DAYS: No - Related Data Allergies/Adverse Reactions: hydromorphone HCl [From Dilaudid] Allergy (Severe, Verified 04/25/17 20:21) Severe chest pain promethazine HCl [From Phenergan] Allergy (Severe, Verified 04/25/17 20:21) dystonic reaction, Body aches, Hyperactivity Sulfa (Sulfonamide Antibiotics) Allergy (Severe, Verified 04/25/17 20:21) Hives acetaminophen [From Vicodin] Allergy (Verified 04/25/17 20:21) Hives hydrocodone bitartrate [From Vicodin] Allergy (Verified 04/25/17 20:21) Hives ciprofloxacin HCl [From Cipro] Adverse Reaction (Severe, Verified 04/25/17 20:21 ) VOMITING morphine [Morphine] Adverse Reaction (Severe, Verified 04/25/17 20:21) Chest pain oxycodone HCl [From Percocet] Adverse Reaction (Severe, Verified 04/25/17 20:21) rapid HR codeine [Codeine] Adverse Reaction (Verified 04/25/17 20:21) Chest pain Past Medical History - General Information source: Patient - Social History Smoking Status: Never Smoker Frequency of alcohol use: None Drug Abuse: Marijuana Lives with: Alone Family History: Reviewed & Not Pertinent - Past Medical History Cardiac Medical History: Denies: Hx Coronary Artery Disease, Hx Heart Attack, Hx Hypertension Pulmonary Medical History: Reports: Hx Asthma, Hx Pneumonia - Age 7 hospitalized x2 wks Denies: Hx Bronchitis, Hx COPD Neurological Medical History: Reports: Hx Migraine. Denies: Hx Cerebrovascular Accident, Hx Seizures Renal/ Medical History: Denies: Hx Peritoneal Dialysis GI Medical History: Reports: Hx Gastroesophageal Reflux Disease Musculoskeltal Medical History: Reports Hx Arthritis - Back, neck, shoulders, Reports Hx Fibromyalgia Psychiatric Medical History: Reports: Hx Anxiety, Hx Attention Deficit Hyperactivity Disorder, Hx Depression, Hx Post Traumatic Stress Disorder Past Surgical History: Reports: Hx Cardiac Surgery - ablation for SVT, Hx Cholecystectomy, Hx Genitourinary Surgery - monarch bladder sling, Hx Orthopedic Surgery - right shoulder, Hx Tubal Ligation - Immunizations Hx Diphtheria, Pertussis, Tetanus Vaccination: Yes Hx Pneumococcal Vaccination: 06/12/14 Review of Systems - Review of Systems Constitutional: No symptoms reported EENT: No symptoms reported Cardiovascular: No symptoms reported Respiratory: See HPI Gastrointestinal: No symptoms reported Genitourinary: No symptoms reported Female Genitourinary: No symptoms reported Musculoskeletal: No symptoms reported Skin: No symptoms reported Hematologic/Lymphatic: No symptoms reported Neurological/Psychological: No symptoms reported Physical Exam - Vital signs Vitals: Temp Pulse BP Pulse Ox 98.4 F 142 H 129/67 H 98 10/03/17 01:47 10/03/17 01:47 10/03/17 01:47 10/03/17 01:47 Interpretation: Normal - General General appearance: Alert In distress: None - HEENT Head: Normocephalic, Atraumatic Eyes: Normal Pupils: PERRL - Respiratory Respiratory status: No respiratory distress, Tachypnea - Patient with tachypnea and occassionally has slightly labored breaths, otherwise she can speak in full sentences. No: Respiratory distress Chest status: Nontender Breath sounds: Nonproductive cough, Wheezing - Expiratory wheezes throughout Chest palpation: Normal - Cardiovascular Rhythm: Regular, Tachycardia Heart sounds: Normal auscultation, S1 appreciated, S2 appreciated Murmur: No Normal capillary refill: Yes - Abdominal Inspection: Normal Distension: No distension Bowel sounds: Normal Tenderness: Nontender. No: Tender, Guarding Organomegaly: No organomegaly - Back Back: Normal, Nontender. No: Tender - Extremities General upper extremity: Normal inspection, Nontender, Normal strength, Normal temperature General lower extremity: Normal inspection, Nontender, Normal strength, Normal temperature. No: Edema - Neurological Neuro grossly intact: Yes Cognition: Normal Orientation: AAOx4 [place] Coma Scale Eye Opening: Spontaneous [place] Coma Scale Verbal: Oriented [place] Coma Scale Motor: Obeys Commands [place] Coma Scale Total: 15 Speech: Normal Motor strength normal: LUE, RUE, LLE, RLE Sensory: Normal - Psychological Associated symptoms: Normal affect, Normal mood - Skin Skin Temperature: Warm Skin Moisture: Dry Skin Color: Normal Course - Re-evaluation Re-evalutation: On reevaluation patient's tachycardia has since significantly improved that she is still tachycardic at about 110. Her wheezing has completely resolved, however she still has some tachypnea and she states she feels really short of breath. CBC shows leukocytosis at 15,000 with elevation of neutrophils but no bandemia. Chemistry generally unremarkable, slightly low potassium. HCG is negative. D-dimer is elevated. Because of patient's tachycardia, hypoxia, shortness of breath CTA will be performed. This was discussed with patient. 10/03/17 CTA does not show pneumonia or pulmonary embolism. Unremarkable scan, shows hepatic steatosis, this was discussed with patient. Patient still has some baseline tachycardia and states she is mildly short of breath at rest on oxygen. She did attempt to ambulate, she went to the bathroom , this was checked with pulse oxygenation as well, her pulse oxygenation was normal but her heart rate elevated into the 130s and patient became obviously short of breath with severe tachypnea. Does not appear ready to go home. Discussed with Dr. Cortes, patient will be admitted to telemetry observation. Patient states understanding and agreement with this plan. - Vital Signs Vital signs: Temp Pulse Resp BP Pulse Ox 98.4 F 142 H 20 103/77 99 10/03/17 01:47 10/03/17 01:47 10/03/17 05:01 10/03/17 03:18 10/03/17 05:01 - Laboratory Result Diagrams: 10/03/17 03:31 10/03/17 03:31 Laboratory results interpreted by me: 10/03/17 10/03/17 10/03/17 03:31 03:31 03:31 WBC 15.0 H Absolute Neutrophils 10.9 H D-Dimer 1.81 H VBG pH VBG pCO2 Potassium 3.4 L BUN 6 L 10/03/17 03:50 WBC Absolute Neutrophils D-Dimer VBG pH 7.45 H VBG pCO2 29.8 L Potassium BUN Discharge - Discharge Clinical Impression: Shortness of breath, Tachycardia Asthma exacerbation Qualifiers: Asthma severity: severe Asthma persistence: unspecified Qualified Code(s): J45.901 - Unspecified asthma with (acute) exacerbation Condition: Stable Disposition: ADMITTED OBSERVATION Admitting Provider: Hospitalist Unit Admitted: Telemetry Referrals: MEREDITH CARRIZALES MD [Primary Care Provider] - Follow up as needed
[2017-10-03] MEDS: MAGNESIUM SULFATE/D5W 1 GM/100 ML RTUPB IV SCH ×2 (03:35→03:53)
[2017-10-03 03:48] LABS: ABSOLUTE BASOPHILS # (AUTO) 0.1 10^3/uL (0.0-0.2); ABSOLUTE EOSINOPHILS # (AUTO) 0.4 10^3/uL (0.0-0.6); ABSOLUTE LYMPHOCYTES (AUTO) 2.6 10^3/uL (0.5-4.7); ABSOLUTE NEUT (AUTO) 10.9 10^3/uL (1.7-8.2); BASOPHILS % (AUTO) 0.4 % (0-2); EOSINOPHILS % (AUTO) 2.4 % (0-6); HEMATOCRIT 42.2 % (36.0-47.0); HEMOGLOBIN 14.2 g/dL (12.0-15.5); LYMPHOCYTES % (AUTO) 17.2 % (13-45); MEAN CORPUSCULAR HEMOGLOBIN 30.8 pg (27.0-33.4); MEAN CORPUSCULAR HGB CONC 33.6 g/dL (32.0-36.0); MEAN CORPUSCULAR VOLUME 92 fl (80-97); MONOCYTES % (AUTO) 6.8 % (3-13); PLATELET COUNT 325 10^3/uL (150-450); RED BLOOD COUNT 4.61 10^6/uL (3.72-5.28); SEGMENTED NEUTROPHILS % (AUTO) 73.2 % (42-78); TOTAL CELLS COUNTED % (AUTO) 100 %
--- NOTE | 2017-10-03 04:00 | RADIOLOGY REPORT (SQ) ---
EXAM DESCRIPTION: CHEST SINGLE VIEW CLINICAL HISTORY: shortness of breath COMPARISON: 04/25/2017 FINDINGS: Single frontal view of the chest. The cardiomediastinal silhouette has normal size and contour. No consolidation, pneumothorax, or pleural effusion. No displaced rib fractures identified. Upper abdominal soft tissues are unremarkable. IMPRESSION: 1. No acute pulmonary process identified.
[2017-10-03 04:13] LABS: VENOUS BLOOD BASE EXCESS -2.6 mmol/L; VENOUS BLOOD HCO3 20.2 mmol/L (20-32); VENOUS BLOOD PCO2 29.8 mmHg (35-63); VENOUS BLOOD PH 7.45 (7.30-7.42)
[2017-10-03 04:27] LABS: ALANINE AMINOTRANSFERASE 28 U/L (9-52); ALBUMIN 4.6 g/dL (3.5-5.0); ALKALINE PHOSPHATASE 77 U/L (38-126); ANION GAP 15 (5-19); ASPARTATE AMINO TRANSFERASE 20 U/L (14-36); BILIRUBIN,DIRECT 0.4 mg/dL (0.0-0.4); BILIRUBIN,TOTAL 0.6 mg/dL (0.2-1.3); BLOOD UREA NITROGEN 6 mg/dL (7-20); CALCIUM 9.9 mg/dL (8.4-10.2); CARBON DIOXIDE 23 mmol/L (22-30); CHLORIDE 106 mmol/L (98-107); GLUCOSE 109 mg/dL (75-110); POTASSIUM 3.4 mmol/L (3.6-5.0); SODIUM 143.9 mmol/L (137-145); TOTAL PROTEIN 7.7 g/dL (6.3-8.2)
--- NOTE | 2017-10-03 05:51 | RADIOLOGY REPORT (SQ) ---
EXAM DESCRIPTION: CTA of the chest per PE protocol with contrast. CLINICAL HISTORY: shortness of breath, elevated D-Dimer COMPARISON: 04/25/2017 TECHNIQUE: CTA of the chest obtained following the uncomplicated intravenous administration of 77 mL Isovue-370. 3-D/MIP reformatted images of the chest available for evaluation. FINDINGS: Chest: Mediastinal windows demonstrate an adequate contrast bolus. No pulmonary embolus identified. Visualized thyroid gland is unremarkable. Great vessels have normal anatomic configuration. No cardiomegaly, coronary artery atherosclerosis, or pericardial effusion. No abnormalities of the esophagus. Scattered mediastinal lymph nodes are not enlarged by CT criteria. Lung windows demonstrate no consolidation, pneumothorax, or pleural effusion. No abnormalities of the visualized trachea or airways. Limited images of the upper abdomen demonstrate no abnormalities of the visualized spleen, pancreas, adrenal glands, or kidneys. Decreased density of the liver. Prior cholecystectomy. No destructive osseous lesions. DLP: 619.88 mGycm IMPRESSION: 1. No pulmonary embolus identified. 2. Hepatic steatosis. This exam was performed according to our departmental dose-optimization program, which includes automated exposure control, adjustment of the mA and/or kV according to patient size and/or use of iterative reconstruction technique.
[2017-10-03] MEDS ORDERED: HYDRALAZINE HCL INJ/PF 20 MG/1 ML SDV IV PRN (07:14)
[2017-10-03] MEDS ORDERED: CHLORPHENIRAMINE MALEATE 4 MG TABLET PO ONE (07:14)
[2017-10-03] MEDS ORDERED: IPRATROPIUM/ALBUTEROL 0.5-2.5 MG/3 ML AMPUL NEB PRN (07:16)
[2017-10-03] MEDS ORDERED: GUAIFENESIN SYRP 200 MG/10 ML UDC PO PRN (07:16)
[2017-10-03] MEDS: IPRATROPIUM/ALBUTEROL 0.5-2.5 MG/3 ML AMPUL NEB SCH ×3 (08:31→20:45)
[2017-10-03] MEDS: FLUTICASONE NASAL SPRAY 50 MCG/SPRY 120 SPRAY/16 GM NASL SCH ×2 (09:17→22:46)
--- NOTE | 2017-10-03 10:04 | PDOC H&P ---
History of Present Illness Admission Date/PCP: 10/03/17 06:15 MEREDITH CARRIZALES MD Patient complains of: Shortness of breath and cough History of Present Illness: JUN WRIGHT is a 42 year old female with a past medical history of asthma, depression and 3 months of bronchitis. Patient states her symptoms are associated with sore throat and worsened at night. She denies recent antibiotics, rhinorrhea, headache, productive cough or fever. Overnight her symptoms are not alleviated by albuterol nebulizer prompting evaluation emergency room where she is found to have tachypnea and tachycardia. Workup was remarkable for leukocytosis, and elevated d-dimer but negative CTA chest. She is referred to the hospitalist for observation. Patient admits to uncontrolled GERD and several episodes of what sounds like esophageal spasm. Past Medical History Cardiac Medical History: Denies: Coronary Artery Disease, Myocardial Infarction, Hypertension Pulmonary Medical History: Reports: Asthma, Pneumonia - Age 7 hospitalized x2 wks Denies: Bronchitis, Chronic Obstructive Pulmonary Disease (COPD) Neurological Medical History: Reports: Migraine Denies: Seizures GI Medical History: Reports: Gastroesophageal Reflux Disease Musculoskeltal Medical History: Reports: Arthritis - Back, neck, shoulders, Fibromyalgia Psychiatric Medical History: Reports: Attention Deficit Hyperactivity Disorder, Depression, Post Traumatic Stress Disorder Hematology: Denies: Anemia Past Surgical History Past Surgical History: Reports: Cholecystectomy, Orthopedic Surgery - right shoulder, Tubal Ligation Social History Information Source: Patient Lives with: Alone Smoking Status: Former Smoker Frequency of Alcohol Use: Rare Hx Recreational Drug Use: No Drugs: Marijuana Family History Family History: COPD Parental Family History Reviewed: Yes Children Family History Reviewed: Yes Sibling(s) Family History Reviewed.: Yes Medication/Allergy Home Medications: Albuterol Sulfate [Albuterol Sulfate 2.5mg/3 mL] 1 vial IH Q4HP PRN 10/03/17 Albuterol Sulfate [Proair HFA] 2 puff IH Q4HP PRN 10/03/17 Amitriptyline HCl [Elavil 10 Mg Tablet] 10 mg PO QHS 10/03/17 Budesonide/Formoterol Fumarate [Symbicort 160-4.5 Mcg Inhaler] 2 puff IH Q12 06/12 Fluticasone Propionate [Flonase Nasal [place] 50 Mcg/[place] 16 gm] 1 spray NAREB DAILY 10/03/17 Allergies/Adverse Reactions: hydromorphone HCl [From Dilaudid] Allergy (Severe, Verified 04/25/17 20:21) Severe chest pain promethazine HCl [From Phenergan] Allergy (Severe, Verified 04/25/17 20:21) dystonic reaction, Body aches, Hyperactivity Sulfa (Sulfonamide Antibiotics) Allergy (Severe, Verified 04/25/17 20:21) Hives acetaminophen [From Vicodin] Allergy (Verified 04/25/17 20:21) Hives hydrocodone bitartrate [From Vicodin] Allergy (Verified 04/25/17 20:21) Hives ciprofloxacin HCl [From Cipro] Adverse Reaction (Severe, Verified 04/25/17 20:21 ) VOMITING morphine [Morphine] Adverse Reaction (Severe, Verified 04/25/17 20:21) Chest pain oxycodone HCl [From Percocet] Adverse Reaction (Severe, Verified 04/25/17 20:21) rapid HR codeine [Codeine] Adverse Reaction (Verified 04/25/17 20:21) Chest pain Review of Systems Constitutional: ABSENT: chills, fever(s), headache(s), weight gain, weight loss Eyes: ABSENT: visual disturbances Ears: ABSENT: hearing changes Cardiovascular: ABSENT: chest pain, dyspnea on exertion, edema, orthropnea, palpitations Respiratory: PRESENT: as per HPI, cough, dyspnea. ABSENT: hemoptysis, sputum Gastrointestinal: PRESENT: as per HPI, heartburn. ABSENT: abdominal pain, constipation, diarrhea, hematemesis, hematochezia, nausea, vomiting Genitourinary: ABSENT: dysuria, hematuria Musculoskeletal: ABSENT: joint swelling Integumentary: ABSENT: rash, wounds Neurological: ABSENT: abnormal gait, abnormal speech, confusion, dizziness, focal weakness, syncope Psychiatric: ABSENT: anxiety, depression, homidical ideation, suicidal ideation Endocrine: ABSENT: cold intolerance, heat intolerance, polydipsia, polyuria Hematologic/Lymphatic: ABSENT: easy bleeding, easy bruising Physical Exam Vital Signs: Temp Pulse Resp BP Pulse Ox 99.8 F 142 H 15 111/76 98 10/03/17 06:34 10/03/17 01:47 10/03/17 08:01 10/03/17 08:01 10/03/17 08:01 Intake & Output 03/09/18 03/10/18 03/11/18 11:59 11:59 12:59 Weight 76.5 kg General appearance: PRESENT: no acute distress, cooperative, mild distress, well -developed, well-nourished. ABSENT: disheveled, hard of hearing Head exam: PRESENT: atraumatic, normocephalic Eye exam: PRESENT: conjunctiva pink, EOMI, PERRLA. ABSENT: scleral icterus Ear exam: PRESENT: normal external ear exam Mouth exam: PRESENT: moist, tongue midline Neck exam: ABSENT: carotid bruit, JVD, lymphadenopathy, thyromegaly Respiratory exam: PRESENT: accessory muscle use, prolonged expiratory phas, retraction, wheezes. ABSENT: rales, rhonchi Cardiovascular exam: PRESENT: RRR. ABSENT: diastolic murmur, rubs, systolic murmur Pulses: PRESENT: normal dorsalis pedis pul Vascular exam: PRESENT: normal capillary refill GI/Abdominal exam: PRESENT: normal bowel sounds, soft. ABSENT: distended, guarding, mass, organolmegaly, rebound, tenderness Rectal exam: PRESENT: deferred Extremities exam: PRESENT: full ROM. ABSENT: calf tenderness, clubbing, pedal edema Neurological exam: PRESENT: alert, awake, oriented to person, oriented to place , oriented to time, oriented to situation, CN II-XII grossly intact. ABSENT: motor sensory deficit Psychiatric exam: PRESENT: appropriate affect, normal mood. ABSENT: homicidal ideation, suicidal ideation Skin exam: PRESENT: dry, intact, warm. ABSENT: cyanosis, rash Results Impressions: Chest X-Ray 10/03/17 03:15 IMPRESSION: 1. No acute pulmonary process identified. Chest/Abdomen CTA 10/03/17 04:41 IMPRESSION: 1. No pulmonary embolus identified. 2. Hepatic steatosis. This exam was performed according to our departmental dose-optimization program, which includes automated exposure control, adjustment of the mA and/or kV according to patient size and/or use of iterative reconstruction technique. Assessment & Plan - Diagnosis (1) COPD exacerbation Is this a current diagnosis for this admission?: Yes Plan: Secondary to acute bronchitis empiric antibiotics, albuterol and Atrovent, control of GERD with education and proton pump inhibitor. Anticipate discharge within 24 hours. (2) Acute bronchitis Is this a current diagnosis for this admission?: Yes Plan: Complicated by uncontrolled GERD. Trial of empiric antibiotics, education (3) GERD (gastroesophageal reflux disease) Is this a current diagnosis for this admission?: Yes Plan: Proton pump inhibitor twice daily and education (4) Asthma exacerbation Qualifiers: Asthma severity: severe Asthma persistence: unspecified Qualified Code(s) : J45.901 - Unspecified asthma with (acute) exacerbation Is this a current diagnosis for this admission?: Yes Plan: Continue albuterol and Atrovent twice daily regardless of symptoms plus as needed, avoid exposure to triggers and optimize GERD management (5) Tachycardia Is this a current diagnosis for this admission?: Yes Plan: Secondary to excessive albuterol. Patient has history of SVT status post ablation. - Time Time Spent: 30 to 50 Minutes
--- NOTE | 2017-10-03 10:44 | EKG REPORT ---
SEVERITY:- BORDERLINE ECG - SINUS TACHYCARDIA BORDERLINE T WAVE ABNORMALITIES : Confirmed by: Kelsey Solano 03-Oct-2017 10:43:51
[2017-10-03] MEDS: AZITHROMYCIN 500 MG in DEXTROSE 5%-WATER 250 ML IV SCH (10:56)
[2017-10-03] MEDS: HEPARIN SOD (PORCINE) 5,000 UNIT/ML 1 ML SYRINGE SUBCUT SCH ×2 (13:54→22:46)
[2017-10-03] MEDS: LANSOPRAZOLE 30 MG TAB.RAP.DR PO SCH (16:09)
[2017-10-03] MEDS ORDERED: INFLUENZA ADLT QUAD (36MOS+) 2017-18 VAC 0.5 ML SYR IM PRN (18:27)
[2017-10-03] MEDS ORDERED: BENZONATATE 100 MG CAPSULE PO PRN (21:31)
[2017-10-04] MEDS: IPRATROPIUM/ALBUTEROL 0.5-2.5 MG/3 ML AMPUL NEB SCH ×4 (02:21→19:58)
[2017-10-04 04:26] LABS: ABSOLUTE BASOPHILS # (AUTO) 0.1 10^3/uL (0.0-0.2); ABSOLUTE LYMPHOCYTES (AUTO) 2.4 10^3/uL (0.5-4.7); ABSOLUTE MONOCYTES (AUTO) 1.5 10^3/uL (0.1-1.4); ABSOLUTE NEUT (AUTO) 14.4 10^3/uL (1.7-8.2); BASOPHILS % (AUTO) 0.4 % (0-2); HEMATOCRIT 38.3 % (36.0-47.0); MEAN CORPUSCULAR HEMOGLOBIN 31.2 pg (27.0-33.4); MEAN CORPUSCULAR HGB CONC 33.8 g/dL (32.0-36.0); MEAN CORPUSCULAR VOLUME 92 fl (80-97); MONOCYTES % (AUTO) 8.3 % (3-13); PLATELET COUNT 320 10^3/uL (150-450); RED BLOOD COUNT 4.15 10^6/uL (3.72-5.28); RED CELL DISTRIBUTION WIDTH 14.3 % (11.5-14.0); SEGMENTED NEUTROPHILS % (AUTO) 78.3 % (42-78); TOTAL CELLS COUNTED % (AUTO) 100 %; WHITE BLOOD COUNT 18.4 10^3/uL (4.0-10.5)
[2017-10-04] MEDS: HEPARIN SOD (PORCINE) 5,000 UNIT/ML 1 ML SYRINGE SUBCUT SCH ×3 (05:16→22:42)
[2017-10-04] MEDS: LANSOPRAZOLE 30 MG TAB.RAP.DR PO SCH ×2 (05:16→17:07)
--- NOTE | 2017-10-04 07:11 | Physician Advisory Note ---
Physician Advisor ProgressNote .: Pursuant to the plan for [facility], I have reviewed the medical record for this patient. Physician Advisor Statement: Please consider documenting, if you agree: 1. Dx of type of chronic asthma is based on worst category in which pt has at least 1 of following s/s present at baseline: A. Mild Intermittent: only needs albuterol occasionally. B. Mild Persistent: sx >2x/wk, nocturnal sx up to 4x/mo, FEV1 80+% predicted C. Mod Persistent: sx (or albuterol) daily, nocturnal sx >1x/wk, FEV1 60-80% predicted D. Severe Persistent: activities curtailed, frequent exacerbations, noct sx frequent, FEV1 <60% predicted. Status: appropriately Obs with expectation of d/c today. If today, attending finds ongoing or new clinical issues that require continued hospital care/ monitoring, please document them explicitly. Thanks! CK
[2017-10-04] MEDS: FLUTICASONE NASAL SPRAY 50 MCG/SPRY 120 SPRAY/16 GM NASL SCH ×2 (09:04→22:41)
[2017-10-04] MEDS: AZITHROMYCIN 500 MG in DEXTROSE 5%-WATER 250 ML IV SCH (09:04)
[2017-10-04] MEDS ORDERED: ACETAMINOPHEN 325 MG TABLET PO PRN (11:50)
--- NOTE | 2017-10-04 16:50 | PDOC PROGRESS REPORT ---
Subjective Progress Note for:: 10/04/17 Subjective:: Patient is a 42-year-old female with a past medical history of asthma, depression, and bronchitis. She was admitted on 10/03/17 for COPD and Asthma exacerbation. The patient is seen on morning rounds. She is found resting in bed on room air secondary to nasal irritation and dryness. She is found to be mildly tachypneic at 18-20 breaths per minute, hypoxic at 88-92% on room air, and tachycardic at 120 at rest. She does report that she is feeling better today, however, continues to be quite dyspneic with ambulating short distances to the restroom. She denies fever, chills, chest pain, palpitations, orthopnea. She does endorse a productive cough. Reason For Visit: ACUTE BRONCHITIS,COPD EXACERBATION GERD Physical Exam Vital Signs: Temp Pulse Resp BP Pulse Ox 98.1 F 107 H 16 116/70 94 10/04/17 11:43 10/04/17 13:52 10/04/17 13:52 10/04/17 11:43 10/04/17 12:00 Pulse Oximeter Continuous Start: 10/03/17 07: 16 Freq: RTQ4 Status: Active Document 10/04/17 12:00 CW (Rec: 10/04/17 13:31 CW [id number]) Pulse Oximetry Assessment Oxygen Saturation (92-100) 94 Oxygen Delivery Method Room Air Equipment Usage Equipment in Use Continuous SpO2 Machine # 3 Intake & Output 10/03/17 10/04/17 10/05/17 06:59 06:59 06:59 Intake Total 604 Balance 604 Weight 77.1 kg General appearance: PRESENT: no acute distress, well-developed, well-nourished, other - Overweight Head exam: PRESENT: atraumatic, normocephalic Eye exam: PRESENT: conjunctiva pink, EOMI, PERRLA. ABSENT: scleral icterus Ear exam: PRESENT: normal external ear exam Mouth exam: PRESENT: moist, tongue midline Neck exam: ABSENT: carotid bruit, JVD, lymphadenopathy, thyromegaly Respiratory exam: PRESENT: decreased breath sounds - Bibasilar, symmetrical, tachypnea, wheezes - Bilateral. ABSENT: rales, rhonchi Cardiovascular exam: PRESENT: RRR, +S1, +S2, tachycardia. ABSENT: diastolic murmur, rubs, systolic murmur Pulses: PRESENT: normal dorsalis pedis pul Vascular exam: PRESENT: normal capillary refill GI/Abdominal exam: PRESENT: normal bowel sounds, soft. ABSENT: distended, guarding, mass, organolmegaly, rebound, tenderness Rectal exam: PRESENT: deferred Extremities exam: PRESENT: full ROM. ABSENT: calf tenderness, clubbing, pedal edema Neurological exam: PRESENT: alert, awake, oriented to person, oriented to place , oriented to time, oriented to situation, CN II-XII grossly intact. ABSENT: motor sensory deficit Psychiatric exam: PRESENT: appropriate affect, normal mood. ABSENT: homicidal ideation, suicidal ideation Skin exam: PRESENT: dry, intact, warm. ABSENT: cyanosis, rash Results Laboratory Results: 10/04/17 03:37 10/04/17 03:37 WBC 18.4 H RBC 4.15 Hgb 13.0 Hct 38.3 MCV 92 MCH 31.2 MCHC 33.8 RDW 14.3 H Plt Count 320 Seg Neutrophils % 78.3 H Lymphocytes % 13.0 Monocytes % 8.3 Eosinophils % 0.0 Basophils % 0.4 Absolute Neutrophils 14.4 H Absolute Lymphocytes 2.4 Absolute Monocytes 1.5 H Absolute Eosinophils 0.0 Absolute Basophils 0.1 Impressions: Chest X-Ray 10/03/17 03:15 IMPRESSION: 1. No acute pulmonary process identified. Chest/Abdomen CTA 10/03/17 04:41 IMPRESSION: 1. No pulmonary embolus identified. 2. Hepatic steatosis. This exam was performed according to our departmental dose-optimization program, which includes automated exposure control, adjustment of the mA and/or kV according to patient size and/or use of iterative reconstruction technique. Assessment & Plan - Diagnosis (1) Asthma exacerbation Qualifiers: Asthma severity: severe Asthma persistence: unspecified Qualified Code(s) : J45.901 - Unspecified asthma with (acute) exacerbation Is this a current diagnosis for this admission?: Yes Plan: The patient is admitted to the medical floor. Supplemental oxygen as needed to maintain oxygen saturations greater than 90%. Scheduled and as needed nebulizer treatments. Will start the patient on prednisone secondary to continued wheezing, hypoxia, and tachycardia. (2) COPD exacerbation Is this a current diagnosis for this admission?: Yes Plan: As above. Patient was empirically placed on azithromycin given the longevity of her symptoms; greater than 3 months. Patient denies ongoing tobacco use. (3) GERD (gastroesophageal reflux disease) Is this a current diagnosis for this admission?: Yes Plan: PPI twice daily. (4) Tachycardia Is this a current diagnosis for this admission?: Yes Plan: The patient continues to be tachycardic; heart rate noted to be greater than 120 while at rest. The patient does have a history of SVT, she is status post ablation, reports that her baseline heart rate is typically in the high 80s to low 90s. Continue to monitor on continuous cardiac telemetry. - Time Time Spent with patient: 25-34 minutes Anticipated discharge: Home Within: within 24 hours - Inpatient Certification Based on my medical assessment, after consideration of the patient's comorbidities, presenting symptoms, or acuity I expect that the services needed warrant INPATIENT care.: Yes I certify that my determination is in accordance with my understanding of Medicare's requirements for reasonable and necessary INPATIENT services [42 CFR 412.3e].: Yes Medical Necessity: Failure to Improve With Outpatient Therapy, Need For Continuous Telemetry Monitoring, Need for Nebulizer Therapy and Monitoring of Response
[2017-10-04] MEDS ORDERED: IBUPROFEN 800 MG TABLET PO PRN (18:52)
--- NOTE | 2017-10-04 18:54 | Progress Note ---
Provider Note Provider Note: RN notified me that patient has 1 blood culture demonstrating gram-positive cocci. This may be a contaminant, however, until the blood culture has been identified I have added vancomycin. The patient is also complaining of a significant amount of pain secondary to a recent dental crown. The pain is not responding to Tylenol. Therefore, I have ordered Motrin.
[2017-10-04] MEDS ORDERED: VANCOMYCIN HCL 0 MG in DEXTROSE 5%-WATER 250 ML IV NR (19:00)
[2017-10-04] MEDS ORDERED: AMITRIPTYLINE HCL 10 MG TABLET PO SCH (22:00)
[2017-10-04] MEDS: BUDESONIDE/FORMOTEROL 160-4.5 MCG 60 PUFF/6 GM MDI IH SCH (22:41)
[2017-10-04] MEDS: VANCOMYCIN HCL 1,000 MG in DEXTROSE 5%-WATER 250 ML IV SCH (22:42)
[2017-10-05] MEDS: IPRATROPIUM/ALBUTEROL 0.5-2.5 MG/3 ML AMPUL NEB SCH ×4 (01:30→20:06)
[2017-10-05] MEDS: LANSOPRAZOLE 30 MG TAB.RAP.DR PO SCH ×2 (06:32→18:11)
[2017-10-05] MEDS: HEPARIN SOD (PORCINE) 5,000 UNIT/ML 1 ML SYRINGE SUBCUT SCH ×2 (06:32→14:39)
[2017-10-05 07:59] LABS: HEMATOCRIT 37.8 % (36.0-47.0); HEMOGLOBIN 12.9 g/dL (12.0-15.5); MEAN CORPUSCULAR HEMOGLOBIN 31.3 pg (27.0-33.4); MEAN CORPUSCULAR VOLUME 92 fl (80-97); PLATELET COUNT 303 10^3/uL (150-450); RED BLOOD COUNT 4.11 10^6/uL (3.72-5.28); RED CELL DISTRIBUTION WIDTH 14.1 % (11.5-14.0); WHITE BLOOD COUNT 11.9 10^3/uL (4.0-10.5)
[2017-10-05 08:16] LABS: ANION GAP 13 (5-19); BLOOD UREA NITROGEN 7 mg/dL (7-20); CALCIUM 9.1 mg/dL (8.4-10.2); CARBON DIOXIDE 21 mmol/L (22-30); CHLORIDE 106 mmol/L (98-107); GLUCOSE 96 mg/dL (75-110); POTASSIUM 3.7 mmol/L (3.6-5.0); SODIUM 140.3 mmol/L (137-145)
--- NOTE | 2017-10-05 08:48 | Physician Advisory Note ---
Physician Advisor ProgressNote .: Pursuant to the plan for [facility], I have reviewed the medical record for this patient. Physician Advisor Statement: Status: appropriate to change to Inpatient status. CK
[2017-10-05] MEDS: FLUTICASONE NASAL SPRAY 50 MCG/SPRY 120 SPRAY/16 GM NASL SCH (09:51)
[2017-10-05] MEDS: BUDESONIDE/FORMOTEROL 160-4.5 MCG 60 PUFF/6 GM MDI IH SCH (09:51)
[2017-10-05] MEDS: AZITHROMYCIN 500 MG in DEXTROSE 5%-WATER 250 ML IV SCH (09:53)
[2017-10-05] MEDS: VANCOMYCIN HCL 1,000 MG in DEXTROSE 5%-WATER 250 ML IV SCH (09:54)
[2017-10-05] MEDS ORDERED: PREDNISONE 20 MG TABLET PO SCH (10:00)
--- NOTE | 2017-10-05 20:32 | PDOC CONSULTATION ---
Consultation Consult Date: 10/05/17 Attending physician:: TASHA RAMESH Consult reason:: Palpitations History of Present Illness Admission Date/PCP: 10/03/17 06:15 MEREDITH CARRIZALES MD Patient complains of: Palpitations History of Present Illness: JUN WRIGHT is a 42 year old female with a past medical history of asthma, depression and 3 months of bronchitis. Patient states her symptoms are associated with sore throat and worsened at night. She denies recent antibiotics, rhinorrhea, headache, productive cough or fever. Overnight her symptoms are not alleviated by albuterol nebulizer prompting evaluation emergency room where she is found to have tachypnea and tachycardia. Workup was remarkable for leukocytosis, and elevated d-dimer but negative CTA chest. She is referred to the hospitalist for observation. Patient admits to uncontrolled GERD and several episodes of what sounds like esophageal spasm. Patient claims that she was supposed to be discharged today but when she walked to the sink, she developed tachycardia and dizziness therefore discharge was postponed. Patient now referred to me for evaluation of tachycardia. Patient gives history of palpitations and is status post ablation for SVT. Patient also describes history of first-degree AV block. Past Medical History Cardiac Medical History: Denies: Coronary Artery Disease, Myocardial Infarction, Hypertension Pulmonary Medical History: Reports: Asthma, Pneumonia - Age 7 hospitalized x2 wks Denies: Bronchitis, Chronic Obstructive Pulmonary Disease (COPD) Neurological Medical History: Reports: Migraine Denies: Seizures GI Medical History: Reports: Gastroesophageal Reflux Disease Musculoskeltal Medical History: Reports: Arthritis - Back, neck, shoulders, Fibromyalgia Psychiatric Medical History: Reports: Attention Deficit Hyperactivity Disorder, Depression, Post Traumatic Stress Disorder Hematology: Denies: Anemia Past Surgical History Past Surgical History: Reports: Cholecystectomy, Orthopedic Surgery - right shoulder, Tubal Ligation Social History Information Source: Patient Lives with: Alone Smoking Status: Former Smoker Frequency of Alcohol Use: Rare Hx Recreational Drug Use: No Drugs: None Hx Prescription Drug Abuse: No - Advance Directive Resuscitation Status: Full Code Surrogate healthcare decision maker:: Patient's is the surrogate decision-maker Family History Family History: COPD Parental Family History Reviewed: Yes Children Family History Reviewed: Yes Sibling(s) Family History Reviewed.: Yes Medication/Allergy Home Medications: Albuterol Sulfate [Albuterol Sulfate 2.5mg/3 mL] 1 vial IH Q4HP PRN 10/03/17 Albuterol Sulfate [Proair HFA] 2 puff IH Q4HP PRN 10/03/17 Budesonide/Formoterol Fumarate [Symbicort 160-4.5 Mcg Inhaler] 2 puff IH Q12 06/12 Fluticasone Propionate [Flonase Nasal Sal[place] 50 Mcg/Salters 16 gm] 1 spray NAREB DAILY 10/03/17 Amitriptyline HCl [Elavil 50 mg Tablet] 100 mg PO DAILY 10/05/17 Allergies/Adverse Reactions: hydromorphone HCl [From Dilaudid] Allergy (Severe, Verified 04/25/17 20:21) Severe chest pain promethazine HCl [From Phenergan] Allergy (Severe, Verified 04/25/17 20:21) dystonic reaction, Body aches, Hyperactivity Sulfa (Sulfonamide Antibiotics) Allergy (Severe, Verified 04/25/17 20:21) Hives hydrocodone bitartrate [From Vicodin] Allergy (Verified 04/25/17 20:21) Hives ciprofloxacin HCl [From Cipro] Adverse Reaction (Severe, Verified 04/25/17 20:21 ) VOMITING morphine [Morphine] Adverse Reaction (Severe, Verified 04/25/17 20:21) Chest pain oxycodone HCl [From Percocet] Adverse Reaction (Severe, Verified 04/25/17 20:21) rapid HR codeine [Codeine] Adverse Reaction (Verified 04/25/17 20:21) Chest pain Review of Systems Review of Systems: Please see history of present illness and past medical history as wall. Constitutional: No fever or chills reported. Head : No recent chronic headaches, recent head injury. Eyes: No recent eye pain, diplopia, redness, discharge, acute visual changes. Ears: No recent chronic ear pain, acute hearing loss, ear discharge. Oral cavity: No recent ulcerations, bleeding, oral cavity discomfort. Neck: No recent acute neck pain reported. Hematologic: No recent easy bruising or bleeding or hematologic malignancy reported. Lymphatic: No recent lymphatic malignancy, chronic lymphadenopathy reported yet Cardiovascular system review: See history of present illness. Respiratory system review: No recent chronic cough, hemoptysis, blood clots in the lungs reported. Mild Shortness of breath on exertion Gastrointestinal system review: Negative for any recent acute or chronic abdominal pain, hematemesis, melena, recent change in bowel habits. Genitourinary system review: No recent acute or chronic hematuria, flank pain, UTI etc. reported. Skin system review: Negative for any recent abnormal bruising, no rash, no pruritus reported. Neurologic: No prior history of strokes, mini strokes, seizure disorder. Psychologic: Significant psych history noted with PTSD, anxiety panic depression etc. Musculoskeletal: Minor aches and pains reported. No acute joint swelling reported. Endocrine: No recent polyuria, polydipsia, recent heat or cold intolerance. Physical Exam Vital Signs: Temp Pulse Resp BP Pulse Ox 99.0 F 107 H 17 112/65 96 10/05/17 15:02 10/05/17 15:02 10/05/17 15:02 10/05/17 15:02 10/05/17 15:02 Pulse Oximeter Continuous Start: 10/03/17 07: 16 Freq: RTQ4 Status: Active Document 10/05/17 13:20 [facility]Rec: 10/05/17 13:31 [email or web address] Pulse Oximetry Assessment Oxygen Saturation (92-100) 96 Oxygen Delivery Method Room Air Fraction of Inspired Oxygen (FIO2) 21 Equipment Usage Equipment in Use Continuous SpO2 Machine # N 3 Intake & Output 10/04/17 10/05/17 10/06/17 06:59 06:59 06:59 Intake Total 604 2335 960 Balance 604 2335 960 Weight 77.1 kg 77.6 kg Exam: GENERAL: well-nourished and in no acute distress. Alert and oriented x3 HEAD: Atraumatic, normocephalic. EYES: Pupils equal round and reactive to light, extraocular movements intact, sclera anicteric, conjunctiva are normal. ENT: TMs normal, nares patent, oropharynx clear without exudates. Moist mucous membranes. No oral ulcerations or bleeding gums noted NECK: supple without lymphadenopathy. Trachea is central. No cervical or axillary lymphadenopathy noted. Carotids are 2+, JVD WNL LUNGS: Respiration seems nonlabored, no significant accessory muscle action noted. Breath sounds clear to auscultation bilaterally and equal noted. No wheezes rales or rhonchi noted. No significant dullness noted on percussion. CHEST: Palpation of the chest wall shows no significant chest wall tenderness. No other significant abnormalities noted. HEART: [place] [employer], No PSH, 1/6 STEPHANIE aortic area, 1/6 pedraza systolic murmur mitral area, no rubs, no gallops. ABDOMEN: Soft, no significant tenderness appreciated, normoactive bowel sounds. No guarding, no rebound. No rigidity noted . No masses appreciated. EXTREMITIES: Pedal pulses are 1-2+, no calf tenderness noted. No clubbing or cyanosis.trace to 1+ pedal edema noted NEUROLOGICAL: Focused neurological exam showed no significant neurologic deficit. Normal speech, no focal weakness appreciated. PSYCH: Normal mood, normal affect. Judgment and insight within normal limits. SKIN: No significant ecchymosis, skin is noted to be warm. MUSCULOSKELETAL EXAM: No significant acute joint swelling noted. Results Laboratory Results: 10/05/17 07:36 10/05/17 07:36 10/05/17 10/05/17 07:36 07:36 WBC 11.9 H RBC 4.11 Hgb 12.9 Hct 37.8 MCV 92 MCH 31.3 MCHC 34.0 RDW 14.1 H Plt Count 303 Sodium 140.3 Potassium 3.7 Chloride 106 Carbon Dioxide 21 L Anion Gap 13 BUN 7 Creatinine 0.57 Est GFR ( Amer) > 60 Est GFR (Non-Af Amer) > 60 Glucose 96 Calcium 9.1 EKG Comments: Sinus tachycardia without any acute ST-T wave changes. Impressions: Chest X-Ray 10/03/17 03:15 IMPRESSION: 1. No acute pulmonary process identified. Chest/Abdomen CTA 10/03/17 04:41 IMPRESSION: 1. No pulmonary embolus identified. 2. Hepatic steatosis. This exam was performed according to our departmental dose-optimization program, which includes automated exposure control, adjustment of the mA and/or kV according to patient size and/or use of iterative reconstruction technique. Assessment & Plan - Diagnosis (1) Tachycardia Is this a current diagnosis for this admission?: Yes (2) Anxiety and depression Is this a current diagnosis for this admission?: Yes (3) PTSD (post-traumatic stress disorder) Is this a current diagnosis for this admission?: Yes (4) Generalized anxiety disorder with panic attacks Is this a current diagnosis for this admission?: Yes (5) GERD (gastroesophageal reflux disease) Qualifiers: Esophagitis presence: esophagitis presence not specified Qualified Code(s) : K21.9 - Gastro-esophageal reflux disease without esophagitis Is this a current diagnosis for this admission?: Yes - Notes Notes: Tachycardia: Patient noted to have sinus tachycardia. Patient claims history of ablation for SVT. Feel that tachycardia related to general debility, excess beta-2 stimulation, anxiety panic disorder etc. Will try a small dose of beta- binu to see if she can tolerate it and see if this will work for the patient. It may also be worthwhile that patient have relaxation exercises, get physical deep conditioning etc. Patient does give history of snoring and difficulty with sleep. Have recommended a sleep study as an outpatient. Generalized anxiety disorder along with anxiety panic disorder: I believe SSRI agents are preferred. Patient will benefit from additional medications in this regard. - Time Time Spent: 30 to 50 Minutes - CODE STATUS was discussed, patient remains full code. Surrogate decision-maker unchanged. Multiple medical problems were addressed. More than 50% of the time spent coordinating care, discussing management plans with involved caregivers. Management plans discussed with involved personnels. Medical decision making was of moderate to high complexity , patient's has multiple comorbidities. Medications reviewed and adjusted accordingly: Yes
[2017-10-05 21:41] VITALS: BP 117/65
[2017-10-05] MEDS ORDERED: AMITRIPTYLINE HCL 50 MG TABLET PO SCH ×2 (22:00)
[2017-10-05] MEDS ORDERED: METOPROLOL SUCCINATE 25 MG TAB.SR.24H PO SCH (22:00)
--- NOTE | 2017-10-06 18:49 | PDOC PROGRESS REPORT ---
Subjective Progress Note for:: 10/05/17 Subjective:: The patient is resting in her room. She continues to have sinus tachycardia/ SVT with rates ranging from the 130s up into the 150s. She has a history of SVT in the past status post ablation. In addition 1 out of 2 blood cultures are positive for gram-positive cocci. At this point her COPD/asthma exacerbation has resolved and she is stable on room air. She is anxious to go home but agreeable to stay in the hospital for cardiology evaluation. She denies fever chills. No chest pain. She is having heart palpitations and she is symptomatic when she gets up and tries to ambulate. She has increased shortness of breath with ambulation. No nausea vomiting or diarrhea. No dysuria, frequency or hematuria Reason For Visit: ACUTE BRONCHITIS,COPD EXACERBATION GERD Physical Exam Vital Signs: Temp Pulse Resp BP Pulse Ox 98.7 F 112 H 18 117/65 97 10/05/17 20:54 10/05/17 20:54 10/05/17 20:54 10/05/17 20:54 10/05/17 20:54 Pulse Oximeter Continuous Start: 10/03/17 07: 16 Freq: RTQ4 Status: Discharge Document 10/05/17 20:06 [facility] (Rec: 10/05/17 21:48 [facility] [email or web address]) Pulse Oximetry Assessment Oxygen Saturation (92-100) 96 Oxygen Delivery Method Room Air Fraction of Inspired Oxygen (FIO2) 21 Equipment Usage Equipment in Use Continuous SpO2 Machine # N-3 Intake & Output 10/05/17 10/06/17 10/07/17 06:59 06:59 06:59 Intake Total 2335 960 Balance 2335 960 Weight 77.6 kg General appearance: PRESENT: no acute distress, well-developed, well-nourished Head exam: PRESENT: atraumatic, normocephalic Ear exam: PRESENT: normal external ear exam Neck exam: ABSENT: carotid bruit, JVD, lymphadenopathy, thyromegaly Respiratory exam: PRESENT: decreased breath sounds, other - She has end expiratory wheezing noted throughout all lung gottlieb. This is quite mild Cardiovascular exam: PRESENT: tachycardia - With rates between 130 and 150. ABSENT: diastolic murmur, rubs, systolic murmur Pulses: PRESENT: normal dorsalis pedis pul GI/Abdominal exam: PRESENT: normal bowel sounds, soft. ABSENT: distended, guarding, mass, organolmegaly, rebound, tenderness Rectal exam: PRESENT: deferred Extremities exam: PRESENT: full ROM. ABSENT: calf tenderness, clubbing, pedal edema Neurological exam: PRESENT: alert, awake, oriented to person, oriented to place , oriented to time, oriented to situation, CN II-XII grossly intact. ABSENT: motor sensory deficit Psychiatric exam: PRESENT: anxious Skin exam: PRESENT: dry, intact, warm. ABSENT: cyanosis, rash Results Laboratory Results: 10/05/17 07:36 10/05/17 07:36 Impressions: Chest X-Ray 10/03/17 03:15 IMPRESSION: 1. No acute pulmonary process identified. Chest/Abdomen CTA 10/03/17 04:41 IMPRESSION: 1. No pulmonary embolus identified. 2. Hepatic steatosis. This exam was performed according to our departmental dose-optimization program, which includes automated exposure control, adjustment of the mA and/or kV according to patient size and/or use of iterative reconstruction technique. Assessment & Plan - Diagnosis (1) Asthma with COPD with exacerbation Is this a current diagnosis for this admission?: Yes Plan: She has been transitioned to p.o. prednisone at this point. Her exacerbation is much improved. She feels stable for discharge from that standpoint however she is still having significant tachycardia (2) Sinus tachycardia Is this a current diagnosis for this admission?: Yes Plan: She is in a sinus rhythm. At times COPD/asthma. We will await recommendations from him. We will keep her on a remote monitor for nowShe seems to go into SVT. Will consult Dr. Solano. I am reluctant to add a beta-binu in light of her severe COPD. I will keep her on a remote monitor for now. (3) Positive blood culture Is this a current diagnosis for this admission?: Yes Plan: She has 1 out of 2 blood cultures positive for gram-positive cocci. This is likely a skin contaminant however the final results are not back yet. If she stays in the hospital overnight hopefully we will have identification of the species tomorrow morning. (4) GERD (gastroesophageal reflux disease) Qualifiers: Esophagitis presence: esophagitis presence not specified Qualified Code(s) : K21.9 - Gastro-esophageal reflux disease without esophagitis Is this a current diagnosis for this admission?: Yes Plan: Continue PPI (5) Hypokalemia Is this a current diagnosis for this admission?: Yes Plan: Repleted - Time Time Spent with patient: 25-34 minutes - Inpatient Certification Medical Necessity: Other - I am going to keep the patient in the hospital overnight for cardiology evaluation. Also to get final results of her blood cultures. Hopefully she can be discharged tomorrow.
--- NOTE | 2017-10-06 18:59 | PDOC DISCHARGE SUMMARY ---
General - Admit/Disc Date/PCP Admission Date/Primary Care Provider: 10/03/17 06:15 MEREDITH CARRIZALES MD Discharge Date: 10/05/17 - Discharge Diagnosis (1) Asthma with COPD with exacerbation Is this a current diagnosis for this admission?: Yes Summary: No prescriptions were written as the patient checked out AMA overnight. (2) Sinus tachycardia Is this a current diagnosis for this admission?: Yes Summary: She did have her cardiology evaluation. He felt like due to the severity of her tachycardia that a very low-dose beta-binu could be tried in the hospital to see if this exacerbated her respiratory symptoms. However she checked out AMA. (3) Positive blood culture Is this a current diagnosis for this admission?: Yes Summary: 1 out of 2 blood cultures positive for gram-positive cocci. This is likely a skin contaminant. The final species has not been identified (4) GERD (gastroesophageal reflux disease) Is this a current diagnosis for this admission?: Yes Summary: Again no recommendations were made at discharge (5) Hypokalemia Is this a current diagnosis for this admission?: Yes Summary: Repleted - Additional Information Resuscitation Status: Full Code Home Medications: Albuterol Sulfate [Albuterol Sulfate 2.5mg/3 mL] 1 vial IH Q4HP PRN 10/03/17 Albuterol Sulfate [Proair HFA] 2 puff IH Q4HP PRN 10/03/17 Budesonide/Formoterol Fumarate [Symbicort 160-4.5 Mcg Inhaler] 2 puff IH Q12 06/12 Fluticasone Propionate [Flonase Nasal [place] 50 Mcg/[place] 16 gm] 1 spray NAREB DAILY 10/03/17 Amitriptyline HCl [Elavil 50 mg Tablet] 100 mg PO DAILY 10/05/17 History of Present Illness History of Present Illness: JUN WRIGHT is a 42 year old female who presented to the emergency room with an asthma/COPD exacerbation. Hospital Course Hospital Course: She was having a COPD/asthma exacerbation. At this point in time in her life the patient is no longer smoking cigarettes but she does smoke quite a bit of marijuana. She states she has a history of SVT in the past that is status post ablation. She was admitted to the hospital and started on IV Solu-Medrol. She was transitioned to p.o. prednisone as her asthma exacerbation began to improve. Her hospitalization was complicated by the development of significant tachycardia. This may be due to steroids and bronchodilators however she had persistent rates in the 140s and 150s. Due to this cardiology was consulted. He did recommend trying in the setting of the hospital a low-dose beta-binu to see if we could slow her heart rate down without causing further bronchospasm. Unfortunately the patient became quite anxious overnight and checked herself out of the hospital AMA. No recommendations or prescriptions were written at the time of discharge. Physical Exam Vital Signs: Temp Pulse Resp BP Pulse Ox 98.7 F 112 H 18 117/65 97 10/05/17 20:54 10/05/17 20:54 10/05/17 20:54 10/05/17 20:54 10/05/17 20:54 Pulse Oximeter Continuous Start: 10/03/17 07: 16 Freq: RTQ4 Status: Discharge Document 10/05/17 20:06 [facility] (Rec: 10/05/17 21:48 [facility] [email or web address]) Pulse Oximetry Assessment Oxygen Saturation (92-100) 96 Oxygen Delivery Method Room Air Fraction of Inspired Oxygen (FIO2) 21 Equipment Usage Equipment in Use Continuous SpO2 Machine # N-3 Intake & Output 10/05/17 10/06/17 10/07/17 06:59 06:59 06:59 Intake Total 2335 960 Balance 2335 960 Weight 77.6 kg Additional comments: No physical exam was performed as the patient checked out AMA Results Laboratory Results: 10/05/17 07:36 10/05/17 07:36 Impressions: Chest X-Ray 10/03/17 03:15 IMPRESSION: 1. No acute pulmonary process identified. Chest/Abdomen CTA 10/03/17 04:41 IMPRESSION: 1. No pulmonary embolus identified. 2. Hepatic steatosis. This exam was performed according to our departmental dose-optimization program, which includes automated exposure control, adjustment of the mA and/or kV according to patient size and/or use of iterative reconstruction technique. Qualifiers - * PATEINT BEING DISCHARGED WITH ANY OF THE FOLLOWING DIAGNOSIS?: No Plan Discharge Plan: No charge for this discharge as I did not see the patient. She checked out AMA
== END 2017-10-05 22:39 | disposition left against medical advice (07) ==
LOC: ER 01:43 → EH 06:15 → 5 17:20
PROVIDERS: ADMIT Internal Medicine Geriatric Medicine; ATTEND Internal Medicine Geriatric Medicine
DX: J44.1 Chronic obstructive pulmonary disease with (acute) exacerbation (principal); J45.901 Unspecified asthma with (acute) exacerbation; J44.0 Chronic obstructive pulmonary disease with (acute) lower respiratory infection; J20.9 Acute bronchitis, unspecified; R00.0 Tachycardia, unspecified; R78.81 Bacteremia; K21.9 Gastro-esophageal reflux disease without esophagitis; E87.6 Hypokalemia; F43.10 Post-traumatic stress disorder, unspecified; F32.9 Major depressive disorder, single episode, unspecified; F41.1 Generalized anxiety disorder; F41.0 Panic disorder [episodic paroxysmal anxiety]; R06.82 Tachypnea, not elsewhere classified; R09.02 Hypoxemia; K08.89 Other specified disorders of teeth and supporting structures; Z79.899 Other long term (current) drug therapy; Z98.890 Other specified postprocedural states; Z87.01 Personal history of pneumonia (recurrent); Z90.49 Acquired absence of other specified parts of digestive tract; Z87.891 Personal history of nicotine dependence; Z82.5 Family history of asthma and other chronic lower respiratory diseases; Z87.09 Personal history of other diseases of the respiratory system
CPT/HCPCS: 93005; 99285; 96375; 96365; 36415 ×3; 87040; 84703; 85025 ×2; 85027; 87077; 80048; 80053; 87186; 85379; 83880; 71045; 71275; 94799; 93010; 82803; 94762 ×3; 94640 ×3; G0378 ×4; J3490 ×5; J1644 ×3; J2930; J3475; J7512; J7060 ×3; J7030; J3370 ×2; J0456 ×3; J7620 ×3

== ENCOUNTER 2019-04-28 17:49 | Emergency (ER) | payer BC ==
[2019-04-28 18:10] VITALS: BP 103/79
[2019-04-28 18:40] LABS: ABSOLUTE BASOPHILS # (AUTO) 0.1 10^3/uL (0.0-0.2); ABSOLUTE LYMPHOCYTES (AUTO) 2.2 10^3/uL (0.5-4.7); ABSOLUTE MONOCYTES (AUTO) 1.2 10^3/uL (0.1-1.4); ABSOLUTE NEUT (AUTO) 10.7 10^3/uL (1.7-8.2); BASOPHILS % (AUTO) 0.4 % (0-2); EOSINOPHILS % (AUTO) 0.2 % (0-6); HEMATOCRIT 43.6 % (36.0-47.0); HEMOGLOBIN 14.8 g/dL (12.0-15.5); LYMPHOCYTES % (AUTO) 15.4 % (13-45); MEAN CORPUSCULAR VOLUME 94 fl (80-97); MONOCYTES % (AUTO) 8.6 % (3-13); PLATELET COUNT 267 10^3/uL (150-450); RED BLOOD COUNT 4.62 10^6/uL (3.72-5.28); RED CELL DISTRIBUTION WIDTH 13.7 % (11.5-14.0); SEGMENTED NEUTROPHILS % (AUTO) 75.4 % (42-78); TOTAL CELLS COUNTED % (AUTO) 100 %; WHITE BLOOD COUNT 14.1 10^3/uL (4.0-10.5)
[2019-04-28 19:04] LABS: ALBUMIN 4.7 g/dL (3.5-5.0); ALKALINE PHOSPHATASE 66 U/L (38-126); ANION GAP 12 (5-19); ASPARTATE AMINO TRANSFERASE 22 U/L (14-36); BILIRUBIN,DIRECT 0.2 mg/dL (0.0-0.4); BILIRUBIN,TOTAL 0.8 mg/dL (0.2-1.3); BLOOD UREA NITROGEN 9 mg/dL (7-20); CALCIUM 9.7 mg/dL (8.4-10.2); CARBON DIOXIDE 24 mmol/L (22-30); CHLORIDE 102 mmol/L (98-107); GLUCOSE 93 mg/dL (75-110); POTASSIUM 3.5 mmol/L (3.6-5.0)
--- NOTE | 2019-04-28 19:48 | RADIOLOGY REPORT (SQ) ---
EXAM DESCRIPTION: CHEST 2 VIEWS COMPLETED DATE/TIME: 04/28/2019 7:34 pm REASON FOR STUDY: tachycardia COMPARISON: 04/25/2017, 08/11/[address] chest 10/03/2017 EXAM PARAMETERS: NUMBER OF VIEWS: two views TECHNIQUE: Digital Frontal and Lateral radiographic views of the chest acquired. RADIATION DOSE: NA LIMITATIONS: none FINDINGS: LUNGS AND PLEURA: No opacities, masses or pneumothorax. No pleural effusion. MEDIASTINUM AND HILAR STRUCTURES: No masses or contour abnormalities. HEART AND VASCULAR STRUCTURES: Heart normal size. No evidence for failure. BONES: No acute findings. HARDWARE: None in the chest. OTHER: No other significant finding. IMPRESSION: NO ACUTE RADIOGRAPHIC FINDING IN THE CHEST. TECHNICAL DOCUMENTATION: JOB ID: [id number] [employer]- All Rights Reserved Reading location - IP/workstation name: [email or web address]
[2019-04-28] MEDS ORDERED: NORMAL SALINE 500 ML IV ONE (19:58)
--- NOTE | 2019-04-28 20:03 | ER Document Report ---
ED General - General Chief Complaint: Arrhythmia Stated Complaint: HEART PALPITATIONS/NAUSEA/LIGHT HEADED Time Seen by Provider: 04/28/19 19:46 Primary Care Provider: MEREDITH CARRIZALES MD [Primary Care Provider] - Follow up as needed TRAVEL OUTSIDE OF THE [place] IN LAST 30 DAYS: No - HPI Notes: This is a 44-year-old female who presents today with a complaint of palpitations. Patient states that she has had a history of atrial arrhythmias, had an ablation for SVT back in 2011. She states that she is done well except for times when she has been very stressed out. She says she is very stressed out lately and had a drinking binge over the weekend. She describes her heart racing and then slowing down. She states she just feels low in energy. She denies any fever or chills. She denies any chest pain. She denies any recent illness. She describes symptoms as moderate. - Related Data Allergies/Adverse Reactions: hydromorphone HCl [From Dilaudid] Allergy (Severe, Verified 04/25/17 20:21) Severe chest pain promethazine HCl [From Phenergan] Allergy (Severe, Verified 04/25/17 20:21) dystonic reaction, Body aches, Hyperactivity Sulfa (Sulfonamide Antibiotics) Allergy (Severe, Verified 04/25/17 20:21) Hives hydrocodone bitartrate [From Vicodin] Allergy (Verified 04/25/17 20:21) Hives ciprofloxacin HCl [From Cipro] Adverse Reaction (Severe, Verified 04/25/17 20:21) VOMITING morphine [Morphine] Adverse Reaction (Severe, Verified 04/25/17 20:21) Chest pain oxycodone HCl [From Percocet] Adverse Reaction (Severe, Verified 04/25/17 20:21) rapid HR codeine [Codeine] Adverse Reaction (Verified 04/25/17 20:21) Chest pain Past Medical History - Social History Smoking Status: Never Smoker Family History: COPD Patient has suicidal ideation: No Patient has homicidal ideation: No - Past Medical History Cardiac Medical History: Denies: Hx Coronary Artery Disease, Hx Heart Attack, Hx Hypertension Pulmonary Medical History: Reports: Hx Asthma, Hx Pneumonia - Age 7 hospitalized x2 wks Denies: Hx Bronchitis, Hx COPD Neurological Medical History: Reports: Hx Migraine. Denies: Hx Cerebrovascular Accident, Hx Seizures Renal/ Medical History: Denies: Hx Peritoneal Dialysis GI Medical History: Reports: Hx Gastroesophageal Reflux Disease Musculoskeletal Medical History: Reports Hx Arthritis - Back, neck, shoulders, Reports Hx Fibromyalgia Psychiatric Medical History: Reports: Hx Anxiety, Hx Attention Deficit Hyperactivity Disorder, Hx Depression, Hx Post Traumatic Stress Disorder Past Surgical History: Reports: Hx Cardiac Surgery - ablation for SVT, Hx Chol ecystectomy, Hx Genitourinary Surgery - monarch bladder sling, Hx Orthopedic Surgery - right shoulder, Hx Tubal Ligation - Immunizations Hx Diphtheria, Pertussis, Tetanus Vaccination: Yes Hx Pneumococcal Vaccination: 06/12/14 Review of Systems - Review of Systems Cardiovascular: Palpitations. denies: Chest pain, Syncope, Dizziness, Lightheaded Gastrointestinal: denies: Abdominal pain, Diarrhea, Nausea Neurological/Psychological: denies: Headaches, Tingling -: Yes All other systems reviewed and negative Physical Exam - Vital signs Vitals: Temp Pulse Resp BP Pulse Ox 98.2 F 97 18 103/79 98 04/28/19 18:09 04/28/19 18:09 04/28/19 18:09 04/28/19 18:09 04/28/19 18:09 - General General appearance: Appears well, Alert - HEENT Head: Normocephalic, Atraumatic Eyes: Normal Pupils: PERRL - Respiratory Respiratory status: No respiratory distress Chest status: Nontender Breath sounds: Normal Chest palpation: Normal - Cardiovascular Rhythm: Regular Heart sounds: Normal auscultation Murmur: No - Abdominal Inspection: Normal Distension: No distension Bowel sounds: Normal Tenderness: Nontender Organomegaly: No organomegaly - Back Back: Normal, Nontender - Neurological Neuro grossly intact: Yes Cognition: Normal Orientation: AAOx4 Aline Coma Scale Eye Opening: Spontaneous Aline Coma Scale Verbal: Oriented Jo Coma Scale Motor: Obeys Commands Jo Coma Scale Total: 15 Speech: Normal Motor strength normal: LUE, RUE, LLE, RLE Sensory: Normal - Psychological Associated symptoms: Normal affect, Normal mood - Skin Skin Temperature: Warm Skin Moisture: Dry Skin Color: Normal Course - Re-evaluation Re-evalutation: 04/28/19 20:02 Differential diagnosis includes arrhythmia versus stress reaction versus dehydration versus electrolyte abnormality. EKG shows normal sinus rhythm at 67 bpm. First-degree AV block no acute injury pattern. 04/28/19 21:28 Patient reevaluated. Patient is doing well. Labs and imaging reviewed and discussed with patient. She is stable for discharge. Follow-up discussed. She may need another Holter monitor. She understands. - Vital Signs Vital signs: Temp Pulse Resp BP Pulse Ox 98.2 F 97 16 103/79 95 04/28/19 18:09 04/28/19 18:09 04/28/19 20:00 04/28/19 18:09 04/28/19 20:00 - Laboratory Result Diagrams: 04/28/19 18:04 04/28/19 18:04 Laboratory results interpreted by me: 04/28/19 04/28/19 18:04 18:04 WBC 14.1 H Absolute Neuts (auto) 10.7 H Potassium 3.5 L - Diagnostic Test Radiology reviewed: Reports reviewed Discharge - Discharge Clinical Impression: Palpitations Condition: Good Disposition: HOME, SELF-CARE Instructions: Palpitations (Irregular or Rapid Heartrate) ([facility]) Referrals: MEREDITH CARRIZALES MD [Primary Care Provider] - Follow up in 3-5 days
[2019-04-28 20:35] LABS: FREE T4 (FREE THYROXINE) 1.16 ng/dL (0.78-2.19)
[2019-04-28 20:48] LABS: THYROID STIMULATING HORMONE 2.32 uIU/mL (0.47-4.68)
--- NOTE | 2019-04-28 23:18 | EKG REPORT ---
SEVERITY:- ABNORMAL ECG - SINUS RHYTHM FIRST DEGREE AV BLOCK : Confirmed by: Shameka Moses MD 28-Apr-2019 23:17:46
== END 2019-04-28 22:04 | disposition home or self-care (01) ==
LOC: ER 17:49
DX: R00.2 Palpitations (principal); I44.0 Atrioventricular block, first degree; R11.0 Nausea; R42 Dizziness and giddiness; J45.909 Unspecified asthma, uncomplicated
CPT/HCPCS: 36415; 84439; 83735; 84443; 85025; 80053; 84484; 71046; 93005; 93010; J7040; 96360; 99285